=== PATIENT | female | born 1930 | race Caucasian/White ===

== ENCOUNTER 2016-08-26 11:17 | Observation (INO) | payer MEDICARE, OTHER ==
[2016-08-26] MEDS ORDERED: ASPIRIN 81 MG TABLET, CHEWABLE PO ONE (11:20)
--- NOTE | 2016-08-26 11:50 | ER Document Report ---
ED Cardiac - General Chief Complaint: Chest Pain > 30 Stated Complaint: CHEST PAIN Information source: Patient Notes: The patient is an 86-year-old female, past medical history chronic A. fib, hypothyroidism, diabetes type II, hyperlipidemia, COPD, GERD, presents with 2 hours of left-sided chest pressure that is radiating into her left shoulder and upper arm. She was at rest when this all started. She denies ever having this pain before. She denies shortness of breath, cough, fevers, leg swelling, headache, numbness, tingling, nausea, vomiting or abdominal pain. TRAVEL OUTSIDE OF THE [place] IN LAST 30 DAYS: No - Related Data Allergies/Adverse Reactions: lidocaine [Lidocaine] Allergy (Severe, Verified 12/15/14 14:28) heart problems clonidine [Clonidine] Allergy (Verified 12/15/14 14:28) nifedipine [From Procardia] Allergy (Verified 12/15/14 14:28) Sulfa (Sulfonamide Antibiotics) Allergy (Verified 12/15/14 14:28) Shellfish * [Shellfish] Adverse Reaction (Verified 12/15/14 14:28) cat dander Allergy (Uncoded 12/15/14 14:28) dog dander Allergy (Uncoded 12/15/14 14:28) Past Medical History - General Information source: Patient - Social History Smoking Status: Never Smoker Family History: DM, Other - [place]-brother, sister, mother Stroke- brother, mother - Past Medical History Cardiac Medical History: Reports: Hx Atrial Fibrillation, Hx Coronary Artery Disease, Hx Heart Attack, Hx Hypercholesterolemia, Hx Hypertension Pulmonary Medical History: Reports: Hx COPD Denies: Hx Tuberculosis Endocrine Medical History: Reports: Hx Diabetes Mellitus Type 1, Hx Diabetes Mellitus Type 2, Hx Hypothyroidism GI Medical History: Reports: Hx Gastroesophageal Reflux Disease Musculoskeltal Medical History: Reports Hx Arthritis, Reports Hx Fibromyalgia Psychiatric Medical History: Reports: Hx Anxiety, Hx Dementia, Hx Depression Past Surgical History: Reports: Hx Orthopedic Surgery - cervical fusion, Hx Thyroid Surgery - partial thyroidectomy - Immunizations Hx Diphtheria, Pertussis, Tetanus Vaccination: No Hx Pneumococcal Vaccination: 08/17/10 Review of Systems - Review of Systems Notes: REVIEW OF SYSTEMS: CONSTITUTIONAL: -fevers, -chills EENT: -eye pain, -difficulty swallowing, -nasal congestion CARDIOVASCULAR: +chest pain, -syncope. RESPIRATORY: -cough, -SOB GASTROINTESTINAL: -abdominal pain, - nausea, -vomiting, -diarrhea GENITOURINARY: -dysuria, -hematuria MUSCULOSKELETAL: -back pain, -neck pain SKIN: -rash or skin lesions. HEMATOLOGIC: -easy bruising or bleeding. LYMPHATIC: -swollen, enlarged glands. NEUROLOGICAL: -altered mental status or loss of consciousness, -headache, - neurologic symptoms PSYCHIATRIC: -anxiety, -depression. ALL OTHER SYSTEMS REVIEWED AND NEGATIVE. Physical Exam - Vital signs Vitals: Pulse Ox 95 08/26/16 11:20 BP 140/100, HR 84, 98% on RA, RR 22 - Notes Notes: PHYSICAL EXAMINATION: GENERAL: Well-appearing, well-nourished and in no acute distress. HEAD: Atraumatic, normocephalic. EYES: Pupils equal round and reactive to light, extraocular movements intact, sclera anicteric, conjunctiva are normal. ENT: nares patent, oropharynx clear without exudates. Moist mucous membranes. NECK: Normal range of motion, supple without lymphadenopathy LUNGS: Breath sounds clear to auscultation bilaterally and equal. No wheezes rales or rhonchi. HEART: Regular rate and rhythm. Tenderness over left upper chest wall. ABDOMEN: Soft, nontender, normoactive bowel sounds. No guarding, no rebound. No masses appreciated. EXTREMITIES: Normal range of motion, no pitting or edema. No cyanosis. NEUROLOGICAL: Cranial nerves grossly intact. Normal speech, normal gait. Normal sensory, motor, and reflex exams. PSYCH: Normal mood, normal affect. SKIN: Warm, Dry, normal turgor, no rashes or lesions noted. Course - Re-evaluation Re-evalutation: Patient chest pain-free. HEART score 7. Symptoms atypical for PE or aortic dissection at this time. Will bring patient in for Obs for further evaluation and treatment of her chest pain. 08/26/16 13:29 Spoke to Reg Camara and she has accepted patient as telemetry observation. - Vital Signs Vital signs: Temp Pulse Resp BP Pulse Ox 98.6 F 83 25 H 162/100 H 99 08/26/16 12:13 08/26/16 12:13 08/26/16 13:01 08/26/16 13:01 08/26/16 13:01 - Laboratory Result Diagrams: 08/26/16 11:55 08/26/16 11:55 Laboratory results interpreted by me: 08/26/16 11:55 Hct 34.8 L RDW 14.5 H - Diagnostic Test Radiology reviewed: Image reviewed, Reports reviewed Radiology results interpreted by me: CXR: NAD - EKG Interpretation by Me EKG shows normal: Sinus rhythm Rhythm: NSR, Other - frequent PVCs [place]/QRS: RBBB, LAHB/LAFB Discharge - Discharge Clinical Impression: Chest pain Qualifiers: Chest pain type: unspecified Qualified Code(s): R07.9 - Chest pain, unspecified Condition: Good Disposition: ADMITTED OBSERVATION Admitting Provider: Hospitalist Arina Camara
[2016-08-26 12:29] LABS: ABSOLUTE LYMPHOCYTES (AUTO) 1.2 10^3/uL (0.5-4.7); ABSOLUTE MONOCYTES (AUTO) 0.6 10^3/uL (0.1-1.4); ABSOLUTE NEUT (AUTO) 3.2 10^3/uL (1.7-8.2); BASOPHILS % (AUTO) 0.8 % (0-2); EOSINOPHILS % (AUTO) 0.8 % (0-6); HEMATOCRIT 34.8 % (36.0-47.0); HGB HCT DIFFERENCE 1.2; MEAN CORPUSCULAR HEMOGLOBIN 31.5 pg (27.0-33.4); MEAN CORPUSCULAR HGB CONC 34.5 g/dL (32.0-36.0); MEAN CORPUSCULAR VOLUME 91 fl (80-97); MONOCYTES % (AUTO) 12.3 % (3-13); RED BLOOD COUNT 3.81 10^6/uL (3.72-5.28); RED CELL DISTRIBUTION WIDTH 14.5 % (11.5-14.0); SEGMENTED NEUTROPHILS % (AUTO) 63.1 % (42-78); WHITE BLOOD COUNT 5.1 10^3/uL (4.0-10.5)
[2016-08-26 12:50] LABS: ALANINE AMINOTRANSFERASE 28 U/L (9-52); ALBUMIN 3.7 g/dL (3.5-5.0); ALKALINE PHOSPHATASE 38 U/L (38-126); ANION GAP 10 (5-19); ASPARTATE AMINO TRANSFERASE 27 U/L (14-36); BILIRUBIN,TOTAL 0.3 mg/dL (0.2-1.3); BLOOD UREA NITROGEN 15 mg/dL (7-20); CALCIUM 8.8 mg/dL (8.4-10.2); CARBON DIOXIDE 29 mmol/L (22-30); CHLORIDE 102 mmol/L (98-107); CREATINE KINASE 32 U/L (30-135); CREATININE RESULT 0.53 mg/dL (0.52-1.25); GLUCOSE 90 mg/dL (75-110); POTASSIUM 4.4 mmol/L (3.6-5.0); SODIUM 140.9 mmol/L (137-145)
[2016-08-26 13:00] LABS: CREATINE KINASE MB 0.95 ng/mL (<4.55)
[2016-08-26 13:01] LABS: TROPONIN I < 0.012 ng/mL
[2016-08-26] MEDS ORDERED: HEPARIN SOD (PORCINE) 5,000 UNIT/ML 1 ML SYRINGE SUBCUT SCH (14:00)
[2016-08-26] MEDS ORDERED: INFLUENZA ADLT QUAD (36MOS+) 2016-17 VAC 0.5 ML SYR IM PRN (16:32)
--- NOTE | 2016-08-26 16:59 | EKG REPORT ---
SEVERITY:- ABNORMAL ECG - SINUS RHYTHM MULTIPLE VENTRICULAR PREMATURE COMPLEXES RBBB AND LAFB : Confirmed by: Racheal Vail MD 26-Aug-2016 16:58:11
[2016-08-26] MEDS ORDERED: (PENDING PHARMACY ID) (Acetaminophen [Acetaminophen Extra Strength] 1,000 MG) PO PRN (17:50)
[2016-08-26] MEDS ORDERED: ALPRAZOLAM 0.25 MG TABLET PO PRN (17:50)
[2016-08-26] MEDS ORDERED: ACETAMINOPHEN 325 MG TABLET PO PRN (18:24)
--- NOTE | 2016-08-26 18:28 | PDOC H&P ---
History of Present Illness Admission Date/PCP: 08/26/16 13:43 Patient complains of: Left sided Chest pain History of Present Illness: RADHA RIVAS is a 86 year old female resident at [facility] who was brought to the emergency department due to complain of left sided pressure like chest pain. Symptom started at rest about 2-3 hours before presentation to the ED. She denied any associated SOB, palpitation, nausea, vomiting or diaphoresis. She reported radiation of pain to left shoulder joint and upper left arm. Discomfort was reported as intermittent. She was managed with Aspirin 325 mg po x 1 dose and supplemental oxygen. Her initial evaluation in the ED was remarkable for elevated blood pressure with non specific EKG changes and normal cardiac enzymes. Due to her high HEART score at 7, she was advised admission to observation bed for further evaluation of probable ACS. At the time of my assessment patient remain pain free. Past Medical History Cardiac Medical History: Reports: Atrial Fibrillation, Coronary Artery Disease, Hyperlipidema, Hypertension Denies: Congestive Heart Failure, Myocardial Infarction Pulmonary Medical History: Denies: Asthma, Bronchitis, Chronic Obstructive Pulmonary Disease (COPD), Pneumonia, Tuberculosis Neurological Medical History: Denies: Seizures Endocrine Medical History: Reports: Diabetes Mellitus Type 2 - diet controlled, Hypothyroidism Renal/ Medical History: Denies: End Stage Renal Disease GI Medical History: Reports: Gastroesophageal Reflux Disease Denies: Cirrhosis Musculoskeltal Medical History: Reports: Arthritis, Fibromyalgia Psychiatric Medical History: Reports: Dementia, Depression Denies: Bipolar Disorder Hematology: Denies: Anemia, Bleeding Tendencies Past Surgical History Past Surgical History: Reports: Orthopedic Surgery - cervical fusion Social History Smoking Status: Never Smoker Frequency of Alcohol Use: None Hx Recreational Drug Use: No Drugs: None Hx Prescription Drug Abuse: No - Advance Directive Resuscitation Status: Full Code Family History Family History: DM, Other - [place]-brother, sister, mother Stroke- brother, mother Parental Family History Reviewed: Yes Children Family History Reviewed: Yes Sibling(s) Family History Reviewed.: Yes Medication/Allergy Home Medications: Acetaminophen [Acetaminophen Extra Strength] 1,000 mg PO Q8HP PRN 08/26/16 Alprazolam [Xanax 0.25 mg Tablet] 0.25 mg PO Q12HP PRN 08/26/16 Ascorbic Acid [Vitamin C 500 mg Tablet] 500 mg PO DAILY 08/26/16 Aspirin [Aspirin 81 mg Chewable Tablet] 81 mg PO DAILY 08/26/16 Calcium Carbonate [[place] 500 mg Tablet (Oyster-Shell)] 500 mg PO DAILY Cetirizine HCl [Zyrtec 10 mg Tablet] 1 tab PO DAILY 08/26/16 Esomeprazole Magnesium [Nexium] 40 mg PO DAILY 08/26/16 Levothyroxine Sodium [Synthroid 0.075 mg Tablet] 0.075 mg PO Q6AM 08/26/16 Lisinopril [Prinivil 5 mg Tablet] 5 mg PO DAILY 08/26/16 Magnesium Oxide [Mag-Ox 400 mg Tablet] 400 mg PO DAILY 08/26/16 Vit No.73/Iron/FA [Trinate Tablet] 1 each PO DAILY 08/26/16 Raloxifene HCl [Evista 60 mg Tablet] 60 mg PO DAILY 08/26/16 Sennosides/Docusate 8.6-50 mg [Senna Plus Tablet] 1 tab PO DAILY 08/26/16 Sertraline HCl [Zoloft] 100 mg PO QHS 08/26/16 Trazodone HCl [Desyrel 50 mg Tablet] 50 mg PO QHS 08/26/16 Zolpidem Tartrate [Ambien 5 mg Tablet] 5 mg PO QHS 08/26/16 Allergies/Adverse Reactions: lidocaine [Lidocaine] Allergy (Severe, Verified 12/15/14 14:28) heart problems clonidine [Clonidine] Allergy (Verified 12/15/14 14:28) nifedipine [From Procardia] Allergy (Verified 12/15/14 14:28) Sulfa (Sulfonamide Antibiotics) Allergy (Verified 12/15/14 14:28) Shellfish * [Shellfish] Adverse Reaction (Verified 12/15/14 14:28) cat dander Allergy (Uncoded 12/15/14 14:28) dog dander Allergy (Uncoded 12/15/14 14:28) Physical Exam Vital Signs: Temp Pulse Resp BP Pulse Ox 98.4 F 78 22 H 151/63 H 96 08/26/16 16:22 08/26/16 16:40 08/26/16 16:22 08/26/16 16:22 08/26/16 16:22 Intake & Output 08/25/16 08/26/16 08/27/16 06:59 06:59 06:59 Intake Total 240 Balance 240 Weight 59.12 kg General appearance: PRESENT: no acute distress, cooperative, well-developed, well-nourished Head exam: PRESENT: atraumatic, normocephalic Eye exam: PRESENT: conjunctiva pink, EOMI, PERRLA. ABSENT: scleral icterus Ear exam: PRESENT: normal external ear exam Mouth exam: PRESENT: moist, tongue midline Throat exam: ABSENT: post pharyngeal erythema, tonsillar erythema, tonsillar exudate, tonsillogmegaly, other Neck exam: ABSENT: carotid bruit, full ROM, JVD, lymphadenopathy, meningismus, tenderness, thyromegaly, tracheal deviation, tracheostomy, other Respiratory exam: ABSENT: accessory muscle use, chest wall tenderness, clear to auscultation [place], crackles, decreased breath sounds, prolonged expiratory phas, rales, retraction, rhonchi, stridor, symmetrical, tachypnea, unlabored, wheezes , other Cardiovascular exam: PRESENT: RRR. ABSENT: diastolic murmur, rubs, systolic murmur Pulses: PRESENT: normal dorsalis pedis pul, +2 pedal pulses bilateral Vascular exam: PRESENT: normal capillary refill GI/Abdominal exam: PRESENT: normal bowel sounds, soft. ABSENT: distended, guarding, mass, organolmegaly, rebound, tenderness Rectal exam: PRESENT: deferred Extremities exam: PRESENT: full ROM Musculoskeletal exam: PRESENT: ambulatory, deformity - from joint arthritis, full ROM, normal inspection Neurological exam: PRESENT: alert, awake, oriented to person, oriented to place , oriented to time, oriented to situation, CN II-XII grossly intact. ABSENT: motor sensory deficit Psychiatric exam: PRESENT: appropriate affect, normal mood. ABSENT: homicidal ideation, suicidal ideation Skin exam: PRESENT: dry, intact, warm. ABSENT: cyanosis, rash Results Impressions: Chest X-Ray 08/26/16 11:20 IMPRESSION: 1. No evidence of acute cardiopulmonary disease. 2. 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 Assessment & Plan - Diagnosis (2) Chest pain Qualifiers: Chest pain type: unspecified Qualified Code(s): R07.9 - Chest pain, unspecified Is this a current diagnosis for this admission?: Yes (3) GERD (gastroesophageal reflux disease) Qualifiers: Esophagitis presence: without esophagitis Qualified Code(s): K21.9 - Gastro-esophageal reflux disease without esophagitis Is this a current diagnosis for this admission?: Yes (4) HTN (hypertension) Qualifiers: Hypertension type: essential hypertension Qualified Code(s): I10 - Essential (primary) hypertension Is this a current diagnosis for this admission?: Yes (5) Hypothyroidism Qualifiers: Hypothyroidism type: acquired Qualified Code(s): E03.9 - Hypothyroidism, unspecified Is this a current diagnosis for this admission?: Yes (6) Osteoarthritis Qualifiers: Osteoarthritis location: multiple joints Osteoarthritis type: primary Qualified Code(s): M15.0 - Primary generalized (osteo)arthritis Is this a current diagnosis for this admission?: Yes (7) Hyperlipidemia Qualifiers: Hyperlipidemia type: pure hypercholesterolemia Qualified Code(s): E78.00 - Pure hypercholesterolemia, unspecified; E78.0 - Pure hypercholesterolemia (8) Diabetes mellitus type 2, diet-controlled Is this a current diagnosis for this admission?: Yes (9) CAD (coronary artery disease), [place] coronary artery Qualifiers: [place] vs. transplanted heart: [place] heart Associated angina: with unspecified angina Qualified Code(s): I25.119 - Atherosclerotic heart disease of [place] coronary artery with unspecified angina pectoris Is this a current diagnosis for this admission?: Yes - Time Time Spent: 50 to 70 Minutes Medications reviewed and adjusted accordingly: Yes Anticipated discharge: Other - Assisted Living Facility - Inpatient Certification Based on my medical assessment, after consideration of the patient's comorbidities, presenting symptoms, or acuity I expect that the services needed warrant INPATIENT care.: No I certify that my determination is in accordance with my understanding of Medicare's requirements for reasonable and necessary INPATIENT services [42 CFR 412.3e].: No Post Hospital Care: D/C Director Of Quality Documentation - Plan Summary Plan Summary: See admitting physician orders for details. It is my hope that she will improve and evaluation will be negative to allow discharge back to assisted living facility within the next 24 hours.
[2016-08-26 18:40] LABS: PARTIAL THROMBOPLASTIN TIME 31.1 SEC (23.5-35.8); PROTHROMBIN TIME 13.4 SEC (11.4-15.4)
[2016-08-26] MEDS ORDERED: DEXTROSE 50%-WATER 25 GM/50 ML DISP.SYRIN IV PRN ×2 (18:49)
[2016-08-26] MEDS ORDERED: INSULIN LISPRO 100 UNIT/ML 3 ML VIAL SUBCUT PRN (18:49)
[2016-08-26] MEDS ORDERED: DEXTROSE 40% GEL 15 GM TUBE PO PRN ×2 (18:49)
[2016-08-26] MEDS ORDERED: GLUCAGON,HUMAN RECOMB 1 MG INJ IM PRN (18:49)
[2016-08-26] MEDS ORDERED: ENOXAPARIN SODIUM INJ 40 MG/0.4 ML DISP.SYRIN SUBCUT ONE (19:00)
[2016-08-26 19:31] LABS: CREATINE KINASE MB 1.04 ng/mL (<4.55); TROPONIN I 0.014 ng/mL
[2016-08-26] MEDS ORDERED: TRAZODONE HCL 50 MG TABLET PO SCH (22:00)
[2016-08-26] MEDS ORDERED: ZOLPIDEM TARTRATE 5 MG TABLET PO SCH (22:00)
[2016-08-26] MEDS ORDERED: SERTRALINE HCL 50 MG TABLET PO SCH (22:00)
[2016-08-27 01:59] LABS: CREATINE KINASE MB 0.81 ng/mL (<4.55); TROPONIN I 0.014 ng/mL
[2016-08-27] MEDS ORDERED: LANSOPRAZOLE 30 MG TAB.RAP.DR PO SCH (06:00)
[2016-08-27] MEDS ORDERED: LEVOTHYROXINE SODIUM 0.075 MG TABLET PO SCH (06:00)
[2016-08-27 07:48] LABS: CREATINE KINASE MB 0.77 ng/mL (<4.55)
[2016-08-27] MEDS ORDERED: ENOXAPARIN SODIUM INJ 40 MG/0.4 ML DISP.SYRIN SUBCUT SCH (08:00)
[2016-08-27 08:04] LABS: TROPONIN I < 0.012 ng/mL
[2016-08-27] MEDS ORDERED: ASCORBIC ACID 500 MG TABLET PO SCH (10:00)
[2016-08-27] MEDS ORDERED: LISINOPRIL 5 MG TABLET PO SCH (10:00)
[2016-08-27] MEDS ORDERED: RALOXIFENE HCL 60 MG TABLET PO SCH (10:00)
[2016-08-27] MEDS ORDERED: MAGNESIUM OXIDE 400 MG TABLET PO SCH (10:00)
[2016-08-27] MEDS ORDERED: PRENATAL VITAMIN W-O CA NO5/FE FUMARATE/FA CAPSULE PO SCH (10:00)
[2016-08-27] MEDS ORDERED: CETIRIZINE 10 MG TABLET PO SCH (10:00)
[2016-08-27] MEDS ORDERED: ASPIRIN 81 MG TABLET, CHEWABLE PO SCH (10:00)
[2016-08-27] MEDS ORDERED: CALCIUM CARBONATE 500 MG TABLET PO SCH (10:00)
[2016-08-27] MEDS ORDERED: SENNOSIDES/DOCUSATE 8.6-50 MG 1 EACH TABLET PO SCH (10:00)
[2016-08-27] MEDS ORDERED: [UNRECOGNIZED DRUG - REMARK] PO SCH (10:00)
--- NOTE | 2016-08-27 13:40 | EKG REPORT ---
SEVERITY:- ABNORMAL ECG - SINUS RHYTHM MULTIPLE VENTRICULAR PREMATURE COMPLEXES PROBABLE LEFT ATRIAL ABNORMALITY RBBB AND LAFB : Confirmed by: Racheal Vail MD 27-Aug-2016 13:39:06
--- NOTE | 2016-08-27 15:17 | Physician Advisory Note ---
Physician Advisor ProgressNote .: [facility] I have reviewed the medical record for this patient. Physician Advisor Statement: Possible documentation opportunities if attending agrees: 1. "CP, likely due to " - need to spell out exactly what dx is likely the cause: the GERD? OA? CAD? ... Thanks for your help with documentation accuracy/specificity improvement! Marily Morillo MD [facility], LAT[facility] Physician Advisor, Fellow of [facility]
--- NOTE | 2016-08-27 15:30 | PDOC DISCHARGE SUMMARY ---
General - Admit/Disc Date/PCP Admission Date/Primary Care Provider: 08/26/16 17:49 Discharge Date: 08/27/16 - Discharge Diagnosis (2) Chest pain Is this a current diagnosis for this admission?: YesSummary: Most likely due to GERD. (3) GERD (gastroesophageal reflux disease) Is this a current diagnosis for this admission?: Yes (4) HTN (hypertension) Is this a current diagnosis for this admission?: Yes (5) Hypothyroidism Is this a current diagnosis for this admission?: Yes (6) Osteoarthritis Is this a current diagnosis for this admission?: Yes (8) Diabetes mellitus type 2, diet-controlled Is this a current diagnosis for this admission?: Yes (9) CAD (coronary artery disease), [place] coronary artery Is this a current diagnosis for this admission?: Yes - Additional Information Resuscitation Status: Full Code Discharge Diet: Cardiac Discharge Activity: Activity As Tolerated Home Medications: Acetaminophen [Acetaminophen Extra Strength] 1,000 mg PO Q8HP PRN 08/26/16 Alprazolam [Xanax 0.25 mg Tablet] 0.25 mg PO Q12HP PRN 08/26/16 Ascorbic Acid [Vitamin C 500 mg Tablet] 500 mg PO DAILY 08/26/16 Aspirin [Aspirin 81 mg Chewable Tablet] 81 mg PO DAILY 08/26/16 Calcium Carbonate [[place] 500 mg Tablet (Oyster-Shell)] 500 mg PO DAILY Cetirizine HCl [Zyrtec 10 mg Tablet] 1 tab PO DAILY 08/26/16 Esomeprazole Magnesium [Nexium] 40 mg PO DAILY 08/26/16 Levothyroxine Sodium [Synthroid 0.075 mg Tablet] 0.075 mg PO Q6AM 08/26/16 Lisinopril [Prinivil 5 mg Tablet] 5 mg PO DAILY 08/26/16 Magnesium Oxide [Mag-Ox 400 mg Tablet] 400 mg PO DAILY 08/26/16 Vit No.73/Iron/FA [Trinate Tablet] 1 each PO DAILY 08/26/16 Raloxifene HCl [Evista 60 mg Tablet] 60 mg PO DAILY 08/26/16 Sennosides/Docusate 8.6-50 mg [Senna Plus Tablet] 1 tab PO DAILY 08/26/16 Sertraline HCl [Zoloft] 100 mg PO QHS 08/26/16 Trazodone HCl [Desyrel 50 mg Tablet] 50 mg PO QHS 08/26/16 Zolpidem Tartrate [Ambien 5 mg Tablet] 5 mg PO QHS 08/26/16 History of Present Illness History of Present Illness: RADHA RIVAS is a 86 year old female resident at [facility] who was brought to the emergency department due to complain of left sided pressure like chest pain. Symptom started at rest about 2-3 hours before presentation to the ED. She denied any associated SOB, palpitation, nausea, vomiting or diaphoresis. She reported radiation of pain to left shoulder joint and upper left arm. Discomfort was reported as intermittent. She was managed with Aspirin 325 mg po x 1 dose and supplemental oxygen. Her initial evaluation in the ED was remarkable for elevated blood pressure with non specific EKG changes and normal cardiac enzymes. Due to her high HEART score at 7, she was advised admission to observation bed for further evaluation of probable ACS. At the time of my assessment patient remain pain free. Hospital Course Hospital Course: Her symptoms resolved with any recurrence since my last clinical evaluation. Her cardiac enzymes were within acceptable range without suggestion of chest pain as cardiac in origin. Patient is agreeable to discharge to [facility] today. She denied any nausea, vomiting or abdominal pain. She has been tolerating oral feeding. Physical Exam Vital Signs: Temp Pulse Resp BP Pulse Ox 98.3 F 77 16 147/57 H 100 08/27/16 11:29 08/27/16 14:00 08/27/16 11:29 08/27/16 11:29 08/27/16 11:29 Intake & Output 08/26/16 08/27/16 08/28/16 06:59 06:59 06:59 Intake Total 420 Balance 420 General appearance: PRESENT: no acute distress, well-developed, well-nourished Head exam: PRESENT: atraumatic, normocephalic Eye exam: PRESENT: conjunctiva pink, EOMI, PERRLA. ABSENT: scleral icterus Mouth exam: PRESENT: moist, tongue midline Neck exam: PRESENT: full ROM. ABSENT: carotid bruit, JVD, lymphadenopathy, thyromegaly Respiratory exam: ABSENT: accessory muscle use, chest wall tenderness, clear to auscultation [place], crackles, decreased breath sounds, prolonged expiratory phas, rales, retraction, rhonchi, stridor, symmetrical, tachypnea, unlabored, wheezes , other Extremities exam: PRESENT: full ROM Musculoskeletal exam: PRESENT: ambulatory, deformity - due to multiple joints arthritis changes, full ROM, normal inspection. ABSENT: dislocation, tenderness , other Neurological exam: PRESENT: alert, awake, oriented to person, oriented to place , oriented to time, oriented to situation, CN II-XII grossly intact. ABSENT: motor sensory deficit Psychiatric exam: PRESENT: appropriate affect, normal mood. ABSENT: homicidal ideation, suicidal ideation Skin exam: PRESENT: dry, intact, warm. ABSENT: cyanosis, rash Results Laboratory Results: 08/26/16 08/26/16 08/27/16 18:19 18:19 00:20 Creatine Kinase 22 L 23 L CK-MB (CK-2) 1.04 Troponin I 0.014 08/27/16 08/27/16 08/27/16 00:20 05:25 05:25 Creatine Kinase 24 L CK-MB (CK-2) 0.81 0.77 Troponin I 0.014 < 0.012 Impressions: Chest X-Ray 08/26/16 11:20 IMPRESSION: 1. No evidence of acute cardiopulmonary disease. 2. 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 Qualifiers [place] BEING DISCHARGED WITH ANY OF THE FOLLOWING DIAGNOSIS?: No Plan Discharge Plan: Discharged to [facility] today. Follow up in office as instructed. Time Spent: Less than 30 Minutes
[2016-08-27 16:09] VITALS: BP 188/80
== END 2016-08-27 18:38 | disposition home health service (06) ==
LOC: ER 11:17 → EH 13:41 → UNDOADMOB 13:41 → EH 13:43 → 5 16:21
PROVIDERS: ADMIT Internal Medicine Geriatric Medicine; ATTEND Internal Medicine Geriatric Medicine
DX: R07.9 Chest pain, unspecified (principal); I25.119 Atherosclerotic heart disease of native coronary artery with unspecified angina pectoris; K21.9 Gastro-esophageal reflux disease without esophagitis; I10 Essential (primary) hypertension; E03.9 Hypothyroidism, unspecified; M19.90 Unspecified osteoarthritis, unspecified site; E11.9 Type 2 diabetes mellitus without complications; I48.91 Unspecified atrial fibrillation; E78.5 Hyperlipidemia, unspecified; M79.7 Fibromyalgia; F03.90 Unspecified dementia, unspecified severity, without behavioral disturbance, psychotic disturbance, mood disturbance, and anxiety; Z82.49 Family history of ischemic heart disease and other diseases of the circulatory system; Z82.3 Family history of stroke; Z83.3 Family history of diabetes mellitus
CPT/HCPCS: 93005 ×2; 99285; 96372; 36415 ×2; 82553 ×2; 82962 ×2; 82550 ×2; 84443; 85025; 85610; 85730; 80053; 84484 ×2; 83036; 71010; 93010 ×2; G0378 ×2; A9270 ×14; J1644; J1650 ×2; J3490

== ENCOUNTER 2016-09-11 08:23 | Emergency (ER) | payer MEDICARE, OTHER ==
[2016-09-11] MEDS ORDERED: NORMAL SALINE 1000 ML 1,000 ML IV ONE (08:31)
[2016-09-11] MEDS ORDERED: ONDANSETRON HCL INJ/PF 4 MG/2 ML SDV IV ONE (08:31)
--- NOTE | 2016-09-11 08:54 | ER Document Report ---
[id number] Mode of Arrival: Medic Information source: Patient Notes: 86-year-old female presents with complaints of nausea vomiting diarrhea over the past 12 hours. Patient denies any abdominal pain denies any other concerns. Patient notes the multiple of her friends at [facility] have similar complaints. Patient notes her symptoms have resolved since receiving Zofran by EMS TRAVEL OUTSIDE OF THE [place] IN LAST 30 DAYS: No - HPI Onset: Yesterday Onset/Duration: Intermittent Quality of pain: No pain Severity: Mild Pain Level: Denies Associated symptoms: Diarrhea, Nausea, Vomiting Exacerbated by: Denies Relieved by: Denies Similar symptoms previously: No Recently seen / treated by doctor: No - Related Data Allergies/Adverse Reactions: lidocaine [Lidocaine] Allergy (Severe, Verified 12/15/14 14:28) heart problems clonidine [Clonidine] Allergy (Verified 12/15/14 14:28) nifedipine [From Procardia] Allergy (Verified 12/15/14 14:28) Sulfa (Sulfonamide Antibiotics) Allergy (Verified 12/15/14 14:28) Shellfish * [Shellfish] Adverse Reaction (Verified 12/15/14 14:28) cat dander Allergy (Uncoded 12/15/14 14:28) dog dander Allergy (Uncoded 12/15/14 14:28) Past Medical History - Social History Smoking Status: Never Smoker Cigarette use (# per day): No Chew tobacco use (# tins/day): No Smoking Education Provided: No Family History: DM, Other - [place]-brother, sister, mother Stroke- brother, mother - Past Medical History Cardiac Medical History: Reports: Hx Atrial Fibrillation, Hx Coronary Artery Disease, Hx Hypercholesterolemia, Hx Hypertension Denies: Hx Congestive Heart Failure, Hx Heart Attack Pulmonary Medical History: Denies: Hx Asthma, Hx Bronchitis, Hx COPD, Hx Pneumonia, Hx Tuberculosis Neurological Medical History: Denies: Hx Seizures Endocrine Medical History: Reports: Hx Diabetes Mellitus Type 1, Hx Diabetes Mellitus Type 2 - diet controlled, Hx Hypothyroidism Renal/ Medical History: Denies: Hx End Stage Renal Disease, Hx Kidney Stones GI Medical History: Reports: Hx Gastroesophageal Reflux Disease, Hx Ulcer. Denies: Hx Cirrhosis Musculoskeltal Medical History: Reports Hx Arthritis, Reports Hx Fibromyalgia, Denies Hx Multiple Sclerosis Psychiatric Medical History: Reports: Hx Anxiety, Hx Dementia, Hx Depression Denies: Hx Bipolar Disorder, Hx Schizophrenia Past Surgical History: Reports: Hx Orthopedic Surgery - cervical fusion, Hx Thyroid Surgery - partial thyroidectomy - Immunizations Hx Diphtheria, Pertussis, Tetanus Vaccination: No Hx Pneumococcal Vaccination: 08/17/10 Review of Systems - Review of Systems Notes: REVIEW OF SYSTEMS: CONSTITUTIONAL : Denies fever, chills, or sweats. Denies recent illness. EENT: Denies eye, ear, throat, or mouth pain or symptoms. Denies nasal or sinus congestion or discharge. Denies throat, tongue, or mouth swelling or difficulty swallowing. CARDIOVASCULAR: Denies chest pain. Denies palpitations or racing or irregular heart beat. Denies ankle edema. RESPIRATORY: Denies cough, cold, or chest congestion. Denies shortness of breath, difficulty breathing, or wheezing. GASTROINTESTINAL: Admits to nausea vomiting diarrhea GENITOURINARY: Denies difficulty urinating, painful urination, burning, frequency, blood in urine, or discharge. FEMALE GENITOURINARY: Denies vaginal bleeding, heavy or abnormal periods, irregular periods. Denies vaginal discharge or odor. MUSCULOSKELETAL: Denies back or neck pain or stiffness. Denies joint pain or swelling. SKIN: Denies rash, lesions or sores. HEMATOLOGIC : Denies easy bruising or bleeding. LYMPHATIC: Denies swollen, enlarged glands. NEUROLOGICAL: Denies confusion or altered mental status. Denies passing out or loss of consciousness. Denies dizziness or lightheadedness. Denies headache. Denies weakness or paralysis or loss of use of either side. Denies problems with gait or speech. Denies sensory loss, numbness, or tingling. Denies seizures. PSYCHIATRIC: Denies anxiety or stress. Denies depression, suicidal ideation, or homicidal ideation. ALL OTHER SYSTEMS REVIEWED AND NEGATIVE. Dictation was performed using [employer] recognition software PHYSICAL EXAMINATION: GENERAL: Well-appearing, well-nourished and in no acute distress. HEAD: Atraumatic, normocephalic. EYES: Pupils equal round and reactive to light, extraocular movements intact, conjunctiva are normal. ENT: Nares patent, oropharynx clear without exudates. Moist mucous membranes. NECK: Normal range of motion, supple without lymphadenopathy LUNGS: Breath sounds clear to auscultation bilaterally and equal. No wheezes rales or rhonchi. HEART: Regular rate and rhythm without murmurs ABDOMEN: Soft, nontender, nondistended abdomen. No guarding, no rebound. No masses appreciated. Female : deferred Musculoskeletal: Normal range of motion, no pitting or edema. No cyanosis. NEUROLOGICAL: Cranial nerves grossly intact. Normal speech, normal gait. Normal sensory, motor exams PSYCH: Normal mood, normal affect. SKIN: Warm, Dry, normal turgor, no rashes or lesions noted. Physical Exam - Vital signs Vitals: Resp Pulse Ox 19 99 09/11/16 08:51 09/11/16 08:51 Course - Re-evaluation Re-evalutation: 09/11/16 08:54 Patient extremely pleasant oriented very happy denies any other concerns, she' ll be given fluids and Zofran lab work imaging are pending at this time 09/11/16 15:17 Patient otherwise looks well fluids were given and she wishes to go home I will discharge her at this time After performing a Medical Screening Examination, I estimate there is LOW risk for ACUTE APPENDICITIS, BOWEL OBSTRUCTION, ACUTE CHOLECYSTITIS, PERFORATED DIVERTICULITIS, INCARCERATED HERNIA, PANCREATITIS, PELVIC INFLAMMATORY DISEASE, PERFORATED ULCER, ECTOPIC , or TUBO-OVARIAN ABSCESS, thus I consider the discharge disposition reasonable. Also, there is no evidence or peritonitis , sepsis, or toxicity. The patient and I have discussed the diagnosis and risks , and we agree with discharging home with close follow-up with the understanding that symptoms and presentations can change. We also discussed returning to the Emergency Department immediately if new or worsening symptoms occur. We have discussed the symptoms which are most concerning (e.g., bloody stool, fever, changing or worsening pain, vomiting) that necessitate immediate return. - Vital Signs Vital signs: Temp Pulse Resp BP Pulse Ox 98 F 99 16 147/73 H 95 09/11/16 13:54 09/11/16 13:54 09/11/16 13:54 09/11/16 13:54 09/11/16 13:54 - Laboratory Result Diagrams: 09/11/16 09:07 09/11/16 09:07 Laboratory results interpreted by me: 09/11/16 09/11/16 09/11/16 09:07 09:07 09:15 WBC 12.6 H Seg Neuts % (Manual) 94 H Lymphocytes % (Manual) 3 L Abs Neuts (Manual) 11.8 H Abs Lymphs (Manual) 0.4 L Glucose 143 H Urine Protein 100 H Urine Ketones TRACE H Ur Leukocyte Esterase TRACE H Urine Ascorbic Acid 40 H - Diagnostic Test Radiology reviewed: Image reviewed, Reports reviewed Discharge - Discharge Clinical Impression: Nausea & vomiting Qualifiers: Vomiting type: unspecified Vomiting Intractability: intractable Qualified Code( s): R11.2 - Nausea with vomiting, unspecified Diarrhea Qualifiers: Diarrhea type: unspecified type Qualified Code(s): R19.7 - Diarrhea, unspecified Condition: Stable Disposition: HOME, SELF-CARE Instructions: Vomiting ([facility]), Diarrhea, Nonspecific ([facility]) Prescriptions: Ondansetron [Zofran Odt 4 mg Tablet] 1 - 2 tab PO Q4H PRN #15 tab.rapdis PRN Reason: For Nausea/Vomiting Referrals: GERARD GARCES MD [Primary Care Provider] - Follow up tomorrow
[2016-09-11 09:26] LABS: MEAN CORPUSCULAR HEMOGLOBIN 30.8 pg (27.0-33.4); MEAN CORPUSCULAR HGB CONC 33.3 g/dL (32.0-36.0); MEAN CORPUSCULAR VOLUME 92 fl (80-97); RED BLOOD COUNT 4.22 10^6/uL (3.72-5.28); WHITE BLOOD COUNT 12.6 10^3/uL (4.0-10.5)
[2016-09-11 09:44] LABS: APPEARANCE,URINE CLOUDY; BILIRUBIN,URINE NEGATIVE (NEGATIVE); GLUCOSE, URINE NEGATIVE (NEGATIVE); KETONES,URINE TRACE mg/dL (NEGATIVE); LEUKOCYTE ESTERASE,URINE TRACE (NEGATIVE); NITRITE,URINE NEGATIVE (NEGATIVE); PROTEIN,URINE 100 mg/dL (NEGATIVE); URINE SPECIFIC GRAVITY 1.017; UROBILINOGEN,URINE NEGATIVE mg/dL (<2.0)
[2016-09-11 09:51] LABS: BASOPHILS % (MANUAL) 0 % (0-2); EOSINOPHILS % (MANUAL) 0 % (0-6); LYMPHOCYTES % (MANUAL) 3 % (13-45); TOTAL CELLS COUNTED 100
[2016-09-11 09:54] LABS: ANISOCYTOSIS SLIGHT; OVALOCYTES SLIGHT; POIKILOCYTOSIS SLIGHT; STOMATOCYTES SLIGHT
[2016-09-11 09:55] LABS: ALANINE AMINOTRANSFERASE 24 U/L (9-52); ALBUMIN 4.2 g/dL (3.5-5.0); ALKALINE PHOSPHATASE 44 U/L (38-126); ANION GAP 13 (5-19); ASPARTATE AMINO TRANSFERASE 27 U/L (14-36); BILIRUBIN,TOTAL 0.6 mg/dL (0.2-1.3); BLOOD UREA NITROGEN 18 mg/dL (7-20); CALCIUM 8.8 mg/dL (8.4-10.2); CARBON DIOXIDE 26 mmol/L (22-30); CHLORIDE 101 mmol/L (98-107); CREATINE KINASE 41 U/L (30-135); CREATININE RESULT 0.54 mg/dL (0.52-1.25); GLUCOSE 143 mg/dL (75-110); POTASSIUM 4.2 mmol/L (3.6-5.0); SODIUM 140.3 mmol/L (137-145)
[2016-09-11 09:58] LABS: TOXIC GRANULATION SLIGHT; TOXIC VACUOLATION PRESENT
[2016-09-11 10:06] LABS: CREATINE KINASE MB 1.29 ng/mL (<4.55)
[2016-09-11 10:09] LABS: TROPONIN I < 0.012 ng/mL
[2016-09-11] MEDS ORDERED: ACETAMINOPHEN 325 MG TABLET PO ONE (10:50)
[2016-09-11 13:56] VITALS: BP 147/73
== END 2016-09-11 13:50 | disposition home or self-care (01) ==
LOC: ER 08:23
DX: R11.2 Nausea with vomiting, unspecified (principal); R19.7 Diarrhea, unspecified; I48.91 Unspecified atrial fibrillation; I25.10 Atherosclerotic heart disease of native coronary artery without angina pectoris; E78.00 Pure hypercholesterolemia, unspecified; I10 Essential (primary) hypertension; E11.9 Type 2 diabetes mellitus without complications; K21.9 Gastro-esophageal reflux disease without esophagitis; Z88.2 Allergy status to sulfonamides; Z91.09 Other allergy status, other than to drugs and biological substances; Z91.013 Allergy to seafood
CPT/HCPCS: 99285; 96361; 96374; 36415; 82553; 82550; 85025; 80053; 81001; 84484; 74022; A9270; J2405; J7030

== ENCOUNTER 2016-11-26 15:29 | Emergency (ER) | payer MEDICARE, OTHER ==
[2016-11-26] MEDS ORDERED: MORPHINE SULFATE 10 MG/ML INJ IV ONE (15:46)
[2016-11-26] MEDS ORDERED: MORPHINE SULFATE 10 MG/ML INJ ONE (15:46)
[2016-11-26] MEDS ORDERED: MAG HYDROX/AL HYDROX/SIMETH SUSP 30 ML UDCUP PO ONE (15:47)
--- NOTE | 2016-11-26 15:52 | ER Document Report ---
ED General - General Chief Complaint: Chest Pain > 30 Stated Complaint: CHEST PAIN Time seen by provider: 15:35 Mode of Arrival: Medic Information source: Patient Notes: 86-year-old female reports sudden onset of sharp pain in the left breast radiating into the left back associated with shortness of breath and diaphoresis that began while eating this afternoon. She reports it lasted a few minutes and resolved and then came back about 30 minutes later. Patient reports she has history of angina but doesn't recall that felt similar to this or not. Patient is resident of [facility] assisted living carries a diagnosis of dementia and outpatient DO NOT RESUSCITATE status. He reports no associated nausea or vomiting with her symptoms today. She doesn't recall she' s had symptoms like this in the past. Physical Exam: General: Alert, appears well. HEENT: Normocephalic. Atraumatic. PERRLA. Extraocular movements intact. Oropharynx clear. Neck: Supple. Non-tender. Respiratory: No respiratory distress. Clear and equal breath sounds bilaterally. Mildly tender to palpation on the left anteriorly which reproduces patient's pain. No lesions are noted Cardiovascular: Regular rate and rhythm. PMI not displaced Abdominal: Normal Inspection. Soft, non-tender. No distension. Normal Bowel Sounds. Back: Non-tender. No deformity or step off. Extremities: Extremities all warm with 2+ pulses no cyanosis no edema no Homans sign good range of motion without discomfort Neurological: Speech clear answers questions appropriately manager credit collections strength 5 out of 5 equal both upper tremors motor function 5 out of 5 equal both lower extremities Psychological: Normal affect. Normal Mood. Skin: Warm. Dry. Normal color. TRAVEL OUTSIDE OF THE [place] IN LAST 30 DAYS: No - Related Data Allergies/Adverse Reactions: lidocaine [Lidocaine] Allergy (Severe, Verified 12/15/14 14:28) heart problems clonidine [Clonidine] Allergy (Verified 12/15/14 14:28) nifedipine [From Procardia] Allergy (Verified 12/15/14 14:28) Sulfa (Sulfonamide Antibiotics) Allergy (Verified 12/15/14 14:28) Shellfish * [Shellfish] Adverse Reaction (Verified 12/15/14 14:28) cat dander Allergy (Uncoded 12/15/14 14:28) dog dander Allergy (Uncoded 12/15/14 14:28) Past Medical History - Social History Smoking Status: Never Smoker Family History: DM, Other - [place]-brother, sister, mother Stroke- brother, mother - Past Medical History Cardiac Medical History: Reports: Hx Atrial Fibrillation, Hx Coronary Artery Disease, Hx Hypercholesterolemia, Hx Hypertension Denies: Hx Congestive Heart Failure, Hx Heart Attack Pulmonary Medical History: Denies: Hx Asthma, Hx Bronchitis, Hx COPD, Hx Pneumonia, Hx Tuberculosis Neurological Medical History: Denies: Hx Seizures Endocrine Medical History: Reports: Hx Diabetes Mellitus Type 2 - diet controlled, Hx Hypothyroidism Renal/ Medical History: Denies: Hx End Stage Renal Disease, Hx Kidney Stones GI Medical History: Reports: Hx Gastroesophageal Reflux Disease, Hx Ulcer. Denies: Hx Cirrhosis Musculoskeltal Medical History: Reports Hx Arthritis, Reports Hx Fibromyalgia, Denies Hx Multiple Sclerosis Psychiatric Medical History: Reports: Hx Anxiety, Hx Dementia, Hx Depression Denies: Hx Bipolar Disorder, Hx Schizophrenia Past Surgical History: Reports: Hx Orthopedic Surgery - cervical fusion, Hx Thyroid Surgery - partial thyroidectomy - Immunizations Hx Diphtheria, Pertussis, Tetanus Vaccination: No Hx Pneumococcal Vaccination: 08/17/10 Review of Systems - Review of Systems Constitutional: denies: Chills, Fever, Weakness EENT: denies: Ear pain, Throat pain Cardiovascular: See HPI. denies: Syncope Respiratory: denies: Cough, Wheezing Gastrointestinal: denies: Abdominal pain, Diarrhea, Blood in vomit, Black stools , Rectal bleeding Genitourinary: denies: Burning, Dysuria Female Genitourinary: Post menopausal Musculoskeletal: See HPI. denies: Leg swelling, Ankle swelling Skin: denies: Rash Hematologic/Lymphatic: denies: Swollen glands Neurological/Psychological: denies: Weakness, Numbness Physical Exam - Vital signs Vitals: Resp 17 11/26/16 15:45 Course - Re-evaluation Re-evalutation: 11/26/16 17:47 Reevaluation shows patient to be asleep when awakened she reports no further chest discomfort. Etiology for her symptoms is unclear though I suspect reflux or gastritis. Even if we were certain that the etiology was cardiac however given her advanced age DO NOT RESUSCITATE status and early dementia and aggressive cardiac workup and intervention is not in her best interest. She is already on aspirin and Nexium as an outpatient. We'll have her follow her physician Dr. Mitchell next week - Vital Signs Vital signs: Temp Pulse Resp BP Pulse Ox 17 98 11/26/16 17:00 11/26/16 17:00 - Laboratory Result Diagrams: 11/26/16 15:37 11/26/16 15:37 Laboratory results interpreted by me: 11/26/16 11/26/16 15:37 15:37 Hgb 11.9 L Hct 33.8 L Creatinine 0.47 L Glucose 125 H - Diagnostic Test Radiology reviewed: Image reviewed, Reports reviewed - EKG Interpretation by Me Additional EKG results interpreted by me: 11/26/16 15:56 EKG reviewed by myself shows sinus rhythm at 71 right bundle branch block left anterior fascicular block no acute changes Discharge - Discharge Clinical Impression: Chest pain Qualifiers: Chest pain type: unspecified Qualified Code(s): R07.9 - Chest pain, unspecified Condition: Stable Disposition: HOME-ASSISTED LIVING Referrals: GERARD GARCES MD [Primary Care Provider] - Follow up in 1 week
[2016-11-26 15:58] LABS: ABSOLUTE EOSINOPHILS # (AUTO) 0.1 10^3/uL (0.0-0.6); ABSOLUTE LYMPHOCYTES (AUTO) 1.4 10^3/uL (0.5-4.7); ABSOLUTE MONOCYTES (AUTO) 0.4 10^3/uL (0.1-1.4); ABSOLUTE NEUT (AUTO) 3.2 10^3/uL (1.7-8.2); BASOPHILS % (AUTO) 0.9 % (0-2); EOSINOPHILS % (AUTO) 1.8 % (0-6); HEMATOCRIT 33.8 % (36.0-47.0); HEMOGLOBIN 11.9 g/dL (12.0-15.5); HGB HCT DIFFERENCE 1.9; LYMPHOCYTES % (AUTO) 27.4 % (13-45); MEAN CORPUSCULAR HEMOGLOBIN 31.8 pg (27.0-33.4); MEAN CORPUSCULAR HGB CONC 35.3 g/dL (32.0-36.0); MEAN CORPUSCULAR VOLUME 90 fl (80-97); MONOCYTES % (AUTO) 8.2 % (3-13); RED BLOOD COUNT 3.75 10^6/uL (3.72-5.28); RED CELL DISTRIBUTION WIDTH 13.5 % (11.5-14.0); SEGMENTED NEUTROPHILS % (AUTO) 61.7 % (42-78); WHITE BLOOD COUNT 5.1 10^3/uL (4.0-10.5)
[2016-11-26 16:16] LABS: ALANINE AMINOTRANSFERASE 26 U/L (9-52); ALBUMIN 3.7 g/dL (3.5-5.0); ALKALINE PHOSPHATASE 38 U/L (38-126); ANION GAP 11 (5-19); ASPARTATE AMINO TRANSFERASE 23 U/L (14-36); BILIRUBIN,DIRECT 0.3 mg/dL (0.0-0.4); BILIRUBIN,TOTAL 0.4 mg/dL (0.2-1.3); BLOOD UREA NITROGEN 12 mg/dL (7-20); CALCIUM 8.7 mg/dL (8.4-10.2); CARBON DIOXIDE 27 mmol/L (22-30); CHLORIDE 101 mmol/L (98-107); CREATINE KINASE 43 U/L (30-135); CREATININE RESULT 0.47 mg/dL (0.52-1.25); GLUCOSE 125 mg/dL (75-110); LIPASE 73.6 U/L (23-300); SODIUM 138.9 mmol/L (137-145); TOTAL PROTEIN 6.8 g/dL (6.3-8.2)
[2016-11-26 16:29] LABS: TROPONIN I < 0.012 ng/mL
--- NOTE | 2016-11-26 19:06 | EKG REPORT ---
SEVERITY:- ABNORMAL ECG - SINUS RHYTHM RBBB AND LAFB : Confirmed by: Wicho Calderon MD 26-Nov-2016 19:05:35
[2016-11-27 01:26] VITALS: BP 140/54
== END 2016-11-27 01:23 | disposition home health service (06) ==
LOC: ER 15:29
DX: R07.9 Chest pain, unspecified (principal); R06.02 Shortness of breath; R61 Generalized hyperhidrosis
CPT/HCPCS: 93005; 99285; 96374; 36415; 82553; 82550; 83690; 85025; 80053; 84484; 71010; 93010; J2270

== ENCOUNTER 2016-12-09 01:59 | Observation (INO) | payer MEDICARE, OTHER ==
[2016-12-09] MEDS ORDERED: ASPIRIN 81 MG TABLET, CHEWABLE PO ONE (02:09)
--- NOTE | 2016-12-09 02:13 | ER Document Report ---
ED General - General Stated Complaint: CHEST DISCOMFORT/EYE PAIN Time seen by provider: 02:11 Mode of Arrival: Ambulatory Information source: Patient Notes: This is an 86-year-old female with a history of COPD, diabetes, dyslipidemia, chronic pain syndrome, hypertension. The patient was at [facility] and she developed chest discomfort, left face pain, left eye pain, left arm numbness. Patient was given a nitroglycerin before EMS arrival with improvement of her chest pain. TRAVEL OUTSIDE OF THE [place] IN LAST 30 DAYS: No - HPI Onset: Just prior to arrival Onset/Duration: Sudden Quality of pain: Dull Severity: Moderate Pain Level: 3 Associated symptoms: denies: Chills, Fever, Nausea, Vomiting, Shortness of breath Exacerbated by: Denies Relieved by: Denies Similar symptoms previously: No Recently seen / treated by doctor: No - Related Data Allergies/Adverse Reactions: lidocaine [Lidocaine] Allergy (Severe, Verified 12/15/14 14:28) heart problems clonidine [Clonidine] Allergy (Verified 12/15/14 14:28) nifedipine [From Procardia] Allergy (Verified 12/15/14 14:28) Sulfa (Sulfonamide Antibiotics) Allergy (Verified 12/15/14 14:28) Shellfish * [Shellfish] Adverse Reaction (Verified 12/15/14 14:28) cat dander Allergy (Uncoded 12/15/14 14:28) dog dander Allergy (Uncoded 12/15/14 14:28) Past Medical History - General Information source: Patient - Social History Smoking Status: Former Smoker Cigarette use (# per day): No Chew tobacco use (# tins/day): No Frequency of alcohol use: None Drug Abuse: None Lives with: Family Family History: DM, Other - [place]-brother, sister, mother Stroke- brother, mother - Past Medical History Cardiac Medical History: Reports: Hx Atrial Fibrillation, Hx Coronary Artery Disease, Hx Hypercholesterolemia, Hx Hypertension Denies: Hx Congestive Heart Failure, Hx Heart Attack Pulmonary Medical History: Denies: Hx Asthma, Hx Bronchitis, Hx COPD, Hx Pneumonia, Hx Tuberculosis Neurological Medical History: Denies: Hx Seizures Endocrine Medical History: Reports: Hx Diabetes Mellitus Type 2 - diet controlled, Hx Hypothyroidism Renal/ Medical History: Denies: Hx End Stage Renal Disease, Hx Kidney Stones GI Medical History: Reports: Hx Gastroesophageal Reflux Disease, Hx Ulcer. Denies: Hx Cirrhosis Musculoskeltal Medical History: Reports Hx Arthritis, Reports Hx Fibromyalgia, Denies Hx Multiple Sclerosis Psychiatric Medical History: Reports: Hx Anxiety, Hx Dementia, Hx Depression Denies: Hx Bipolar Disorder, Hx Schizophrenia Past Surgical History: Reports: Hx Orthopedic Surgery - cervical fusion, Hx Thyroid Surgery - partial thyroidectomy - Immunizations Hx Diphtheria, Pertussis, Tetanus Vaccination: No Hx Pneumococcal Vaccination: 08/17/10 Review of Systems - Review of Systems Constitutional: denies: Chills, Fever EENT: No symptoms reported Cardiovascular: See HPI Respiratory: No symptoms reported Gastrointestinal: No symptoms reported Genitourinary: No symptoms reported Female Genitourinary: No symptoms reported Musculoskeletal: No symptoms reported Skin: No symptoms reported Hematologic/Lymphatic: No symptoms reported Neurological/Psychological: See HPI Physical Exam - Vital signs Vitals: Pulse Ox 97 12/09/16 02:09 Notes: Physical exam: GENERAL: 86-year-old female, alert and oriented 3, no acute distress HEAD: Atraumatic, normocephalic. EYES: Pupils equal round and reactive to light (no fixed mid dilated pupil)., extraocular movements intact, sclera anicteric, conjunctiva are normal. No haziness of the cornea. Irvin-Pen pressures of both eyes reveal a pressure of 10 to the right eye and a pressure of 11 to the left eye. ENT: TMs normal, nares patent, oropharynx clear without exudates. Moist mucous membranes. NECK: Normal range of motion, supple without lymphadenopathy or JVD. LUNGS: Breath sounds clear to auscultation bilaterally and equal. No wheezes rales or rhonchi. HEART: Regular rate and rhythm without murmurs, rubs or gallops. ABDOMEN: Soft, normoactive bowel sounds. No tenderness to palpation. No guarding, no rebound. No masses appreciated. EXTREMITIES: Normal range of motion, no pitting or edema. No clubbing or cyanosis. NEUROLOGICAL: Cranial nerves II through XII grossly intact. Normal speech, moving all extremities. Patient does have arthritis of the upper extremities is limited range of motion from this. PSYCH: Normal mood, normal affect. SKIN: Warm, Dry, normal turgor, no rashes or lesions noted. Course - Vital Signs Vital signs: Temp Pulse Resp BP Pulse Ox 97 12/09/16 02:09 - Laboratory Result Diagrams: 12/09/16 02:32 04/25/17 02:32 Laboratory results interpreted by me: 12/09/16 02:32 Creatinine 0.51 L Glucose 116 H - Diagnostic Test Radiology reviewed: Image reviewed, Reports reviewed - CT of the head shows no acute findings. Chest x-ray shows no infiltrates - EKG Interpretation by Me Rate: Normal Rhythm: NSR - EKG shows normal sinus rhythm with a ventricular rate of 74 left anterior hemiblock, right bundle branch block, PVCs, no acute ST depression or elevation. Discharge - Discharge Clinical Impression: chest pain Condition: Stable Disposition: ADMITTED OBSERVATION Admitting Provider: [facility] Admitted: Telemetry
--- NOTE | 2016-12-09 02:20 | ER Document Report ---
ED General - General Stated Complaint: CHEST DISCOMFORT/EYE PAIN Mode of Arrival: Ambulatory TRAVEL OUTSIDE OF THE [place] IN LAST 30 DAYS: No - Related Data Allergies/Adverse Reactions: lidocaine [Lidocaine] Allergy (Severe, Verified 12/15/14 14:28) heart problems clonidine [Clonidine] Allergy (Verified 12/15/14 14:28) nifedipine [From Procardia] Allergy (Verified 12/15/14 14:28) Sulfa (Sulfonamide Antibiotics) Allergy (Verified 12/15/14 14:28) Shellfish * [Shellfish] Adverse Reaction (Verified 12/15/14 14:28) cat dander Allergy (Uncoded 12/15/14 14:28) dog dander Allergy (Uncoded 12/15/14 14:28) Past Medical History - General Information source: Patient - Social History Family History: DM, Other - [place]-brother, sister, mother Stroke- brother, mother - Past Medical History Cardiac Medical History: Reports: Hx Atrial Fibrillation, Hx Coronary Artery Disease, Hx Hypercholesterolemia, Hx Hypertension Denies: Hx Congestive Heart Failure, Hx Heart Attack Pulmonary Medical History: Denies: Hx Asthma, Hx Bronchitis, Hx COPD, Hx Pneumonia, Hx Tuberculosis Neurological Medical History: Denies: Hx Seizures Endocrine Medical History: Reports: Hx Diabetes Mellitus Type 2 - diet controlled, Hx Hypothyroidism Renal/ Medical History: Denies: Hx End Stage Renal Disease, Hx Kidney Stones GI Medical History: Reports: Hx Gastroesophageal Reflux Disease, Hx Ulcer. Denies: Hx Cirrhosis Musculoskeltal Medical History: Reports Hx Arthritis, Reports Hx Fibromyalgia, Denies Hx Multiple Sclerosis Psychiatric Medical History: Reports: Hx Anxiety, Hx Dementia, Hx Depression Denies: Hx Bipolar Disorder, Hx Schizophrenia Past Surgical History: Reports: Hx Orthopedic Surgery - cervical fusion, Hx Thyroid Surgery - partial thyroidectomy - Immunizations Hx Diphtheria, Pertussis, Tetanus Vaccination: No Hx Pneumococcal Vaccination: 08/17/10
[2016-12-09 02:52] LABS: ABSOLUTE BASOPHILS # (AUTO) 0.1 10^3/uL (0.0-0.2); ABSOLUTE EOSINOPHILS # (AUTO) 0.2 10^3/uL (0.0-0.6); ABSOLUTE LYMPHOCYTES (AUTO) 1.5 10^3/uL (0.5-4.7); ABSOLUTE MONOCYTES (AUTO) 0.7 10^3/uL (0.1-1.4); ABSOLUTE NEUT (AUTO) 4.1 10^3/uL (1.7-8.2); BASOPHILS % (AUTO) 0.9 % (0-2); EOSINOPHILS % (AUTO) 2.4 % (0-6); HEMATOCRIT 39.4 % (36.0-47.0); HEMOGLOBIN 13.4 g/dL (12.0-15.5); HGB HCT DIFFERENCE 0.8; LYMPHOCYTES % (AUTO) 23.2 % (13-45); MEAN CORPUSCULAR HEMOGLOBIN 30.8 pg (27.0-33.4); MEAN CORPUSCULAR VOLUME 91 fl (80-97); MONOCYTES % (AUTO) 10.6 % (3-13); RED BLOOD COUNT 4.35 10^6/uL (3.72-5.28); RED CELL DISTRIBUTION WIDTH 13.7 % (11.5-14.0); SEGMENTED NEUTROPHILS % (AUTO) 62.9 % (42-78); WHITE BLOOD COUNT 6.6 10^3/uL (4.0-10.5)
[2016-12-09 02:56] LABS: ALANINE AMINOTRANSFERASE 31 U/L (9-52); ALBUMIN 4.5 g/dL (3.5-5.0); ALKALINE PHOSPHATASE 46 U/L (38-126); ANION GAP 13 (5-19); ASPARTATE AMINO TRANSFERASE 29 U/L (14-36); BILIRUBIN,DIRECT 0.3 mg/dL (0.0-0.4); BILIRUBIN,TOTAL 0.6 mg/dL (0.2-1.3); BLOOD UREA NITROGEN 12 mg/dL (7-20); CALCIUM 9.4 mg/dL (8.4-10.2); CARBON DIOXIDE 28 mmol/L (22-30); CHLORIDE 103 mmol/L (98-107); CREATINE KINASE 38 U/L (30-135); CREATININE RESULT 0.51 mg/dL (0.52-1.25); GLUCOSE 116 mg/dL (75-110)
[2016-12-09 03:08] LABS: CREATINE KINASE MB 1.32 ng/mL (<4.55); TROPONIN I < 0.012 ng/mL
[2016-12-09 03:51] LABS: APPEARANCE,URINE CLEAR; BILIRUBIN,URINE NEGATIVE (NEGATIVE); GLUCOSE, URINE NEGATIVE (NEGATIVE); KETONES,URINE NEGATIVE (NEGATIVE); LEUKOCYTE ESTERASE,URINE NEGATIVE (NEGATIVE); NITRITE,URINE NEGATIVE (NEGATIVE); PROTEIN,URINE NEGATIVE (NEGATIVE); URINE SPECIFIC GRAVITY 1.004; UROBILINOGEN,URINE NEGATIVE mg/dL (<2.0)
[2016-12-09] MEDS ORDERED: ONDANSETRON 4 MG TAB.RAPDIS PO PRN (08:29)
[2016-12-09] MEDS ORDERED: ALPRAZOLAM 0.25 MG TABLET PO PRN (08:29)
[2016-12-09] MEDS ORDERED: NITROGLYCERIN 0.4 MG/TAB 25 TAB/BOTTLE SL PRN (08:29)
[2016-12-09] MEDS ORDERED: LANSOPRAZOLE 30 MG TAB.RAP.DR PO ONE (09:00)
[2016-12-09] MEDS: ASPIRIN 81 MG TABLET, ENT COATED PO SCH (09:10)
[2016-12-09] MEDS: DOCUSATE SODIUM 100 MG CAPSULE PO SCH (09:11)
[2016-12-09] MEDS: MAGNESIUM OXIDE 400 MG TABLET PO SCH (09:11)
[2016-12-09] MEDS: CALCIUM CARBONATE 250 MG/VITAMIN D3 125 UNIT TABLET PO SCH (09:12)
[2016-12-09] MEDS: CETIRIZINE 10 MG TABLET PO SCH (09:13)
[2016-12-09] MEDS: LISINOPRIL 10 MG TABLET PO SCH (09:13)
[2016-12-09] MEDS: PRENATAL VITAMIN W-O CA NO5/FE FUMARATE/FA CAPSULE PO SCH (09:19)
[2016-12-09] MEDS: RALOXIFENE HCL 60 MG TABLET PO SCH (09:19)
[2016-12-09] MEDS ORDERED: LEVOTHYROXINE SODIUM 0.075 MG TABLET PO ONE (09:30)
[2016-12-09] MEDS ORDERED: [UNRECOGNIZED DRUG - OTHER] PO SCH (10:00)
[2016-12-09] MEDS ORDERED: (PENDING PHARMACY ID) (Calcium Carbonate/Vitamin D3 [Calcium 500 + Vit D Caplet] 1 EACH) PO SCH (10:00)
[2016-12-09] MEDS ORDERED: (PENDING PHARMACY ID) (Sennosides [Senna] 8.6 MG) PO SCH (10:00)
[2016-12-09] MEDS ORDERED: PNV95 PO SCH (10:00)
[2016-12-09] MEDS ORDERED: FERROUS FUMARATE PO SCH (10:00)
--- NOTE | 2016-12-09 11:17 | EKG REPORT ---
SEVERITY:- ABNORMAL ECG - SINUS RHYTHM MULTIPLE VENTRICULAR PREMATURE COMPLEXES RBBB AND LAFB : Confirmed by: Seth Valdivia 09-Dec-2016 11:16:01
--- NOTE | 2016-12-09 11:18 | EKG REPORT ---
SEVERITY:- ABNORMAL ECG - SINUS RHYTHM MULTIPLE VENTRICULAR PREMATURE COMPLEXES RBBB AND LAFB : Confirmed by: Seth Valdivia 09-Dec-2016 11:17:19
[2016-12-09] MEDS: NORMAL SALINE 1000 ML 1,000 ML IV PRN (12:35)
[2016-12-09 12:37] LABS: PARTIAL THROMBOPLASTIN TIME 24.2 SEC (23.5-35.8)
[2016-12-09] MEDS: ACETAMINOPHEN 325 MG TABLET PO PRN (12:37)
[2016-12-09 12:46] LABS: CREATINE KINASE MB 0.88 ng/mL (<4.55)
[2016-12-09 12:52] LABS: TROPONIN I < 0.012 ng/mL
--- NOTE | 2016-12-09 18:16 | PDOC H&P ---
History of Present Illness Admission Date/PCP: 12/09/16 08:26 GERARD DEZ Patient complains of: Chest pain, left eye pain History of Present Illness: RADHA RIVAS is a 86 year old female resident at [facility] who was brought to the Ed with concern for chest discomfort that she described as pressure in her chest with associated left sided facial numbness and left eye pain. She reported some improvement in her symptoms upon administration of sublingual nitroglycerin by the EMS personnel. She denied any radiation of pain to neck, jaw, shoulder, or upper extremity. No associated shortness of breath, palpitation, diaphoresis, nausea, or vomiting. Patient was at comfort at the time of my evaluation while in the ED. Past Medical History Cardiac Medical History: Reports: Atrial Fibrillation, Coronary Artery Disease, Hyperlipidema, Hypertension Denies: Congestive Heart Failure, Myocardial Infarction Pulmonary Medical History: Denies: Asthma, Bronchitis, Chronic Obstructive Pulmonary Disease (COPD), Pneumonia, Tuberculosis Neurological Medical History: Denies: Seizures Endocrine Medical History: Reports: Diabetes Mellitus Type 2 - diet controlled, Hypothyroidism Renal/ Medical History: Denies: End Stage Renal Disease GI Medical History: Reports: Gastroesophageal Reflux Disease Denies: Cirrhosis Musculoskeltal Medical History: Reports: Arthritis, Fibromyalgia Psychiatric Medical History: Reports: Dementia, Depression Denies: Bipolar Disorder Hematology: Reports: Anemia Denies: Bleeding Tendencies Past Surgical History Past Surgical History: Reports: Orthopedic Surgery - cervical fusion Social History Lives with: Family Smoking Status: Never Smoker Frequency of Alcohol Use: None Hx Recreational Drug Use: No Drugs: None Hx Prescription Drug Abuse: No - Advance Directive Resuscitation Status: Do Not Resuscitate Family History Family History: DM, Other - [place]-brother, sister, mother Stroke- brother, mother Parental Family History Reviewed: Yes Children Family History Reviewed: Yes Sibling(s) Family History Reviewed.: Yes Medication/Allergy Home Medications: Acetaminophen [Tylenol 325 mg Tablet] 325 mg PO MEALS 12/09/16 Alprazolam [Xanax 0.25 mg Tablet] 0.25 mg PO Q12HP PRN 12/09/16 Aspirin [Ecotrin 81 mg EC Tablet] 81 mg PO DAILY 12/09/16 Calcium Carbonate/Vitamin D3 [Calcium 500 + Vit D Caplet] 1 each PO DAILY Cetirizine HCl [Zyrtec 10 mg Tablet] 10 mg PO DAILY 12/09/16 Docusate Sodium [Colace 100 mg Capsule] 100 mg PO DAILY 12/09/16 Esomeprazole Magnesium [Nexium] 40 mg PO DAILY 12/09/16 Levothyroxine Sodium [Synthroid 0.075 mg Tablet] 0.075 mg PO QAM 12/09/16 Lisinopril [Prinivil 10 mg Tablet] 10 mg PO DAILY 12/09/16 Magnesium Oxide [Mag-Ox 400 mg Tablet] 400 mg PO DAILY 12/09/16 Nitroglycerin [Nitrostat] 0.4 mg SL Q5MP PRN 12/09/16 Ondansetron [Zofran Odt 4 mg Tablet] 4 mg SL Q4HP PRN 12/09/16 Vit No.124/Iron/FA [ Vitamin Tablet] 1 each PO DAILY 12/09/16 Raloxifene HCl [Evista 60 mg Tablet] 60 mg PO DAILY 12/09/16 Sennosides [Senna] 8.6 mg PO DAILY 12/09/16 Sertraline HCl [Zoloft] 100 mg PO QHS 12/09/16 Trazodone HCl [Desyrel 50 mg Tablet] 50 mg PO QHS 12/09/16 Zolpidem Tartrate [Ambien 5 mg Tablet] 5 mg PO HSP PRN 12/09/16 Allergies/Adverse Reactions: lidocaine [Lidocaine] Allergy (Severe, Verified 12/09/16 07:50) heart problems clonidine [Clonidine] Allergy (Verified 12/09/16 07:50) nifedipine [From Procardia] Allergy (Verified 12/09/16 07:50) Sulfa (Sulfonamide Antibiotics) Allergy (Verified 12/09/16 07:50) Shellfish * [Shellfish] Adverse Reaction (Verified 12/09/16 07:50) cat dander Allergy (Uncoded 12/09/16 07:50) dog dander Allergy (Uncoded 12/09/16 07:50) Review of Systems Constitutional: ABSENT: chills, fever(s), headache(s), weight gain, weight loss Eyes: PRESENT: visual disturbances - with regard to left eye pain Ears: PRESENT: hearing changes - some demonstrable hearing impairment Nose, Mouth, and Throat: ABSENT: as per HPI, headache(s), mouth pain, sore throat, vertigo, other Cardiovascular: PRESENT: chest pain. ABSENT: as per HPI, dyspnea on exertion, edema, orthropnea, palpitations, other Respiratory: ABSENT: as per HPI, cough, dyspnea, hemoptysis, sputum, other Gastrointestinal: ABSENT: as per HPI, abdominal pain, bloating, coffee ground emesis, constipation, diarrhea, dysphagia, heartburn, hematemesis, hematochezia , melena, nausea, vomiting, other Genitourinary: ABSENT: dysuria, hematuria Musculoskeletal: PRESENT: deformity - related to multiple joint involvement with arthritis. ABSENT: as per HPI, back pain, joint swelling, muscle weakness , other Neurological: PRESENT: numbness. ABSENT: as per HPI, abnormal gait, abnormal movements, abnormal speech, confusion, convulsions, dizziness, focal weakness, frequent falls, lack of coordination, memory loss, paresthesias, restless legs, syncope, tingling, tremor(s), vertigo, weakness, other Psychiatric: PRESENT: anxiety - baseline health issue. ABSENT: as per HPI, depression, hallucinations, homidical ideation, suicidal ideation, other Endocrine: ABSENT: cold intolerance, heat intolerance, polydipsia, polyuria Hematologic/Lymphatic: ABSENT: easy bleeding, easy bruising, lymphadenopathy Physical Exam Vital Signs: Temp Pulse Resp BP Pulse Ox 98.1 F 94 18 109/58 L 98 12/09/16 12:05 12/09/16 14:00 12/09/16 12:05 12/09/16 12:05 12/09/16 12:05 Intake & Output 12/08/16 12/09/16 12/10/16 06:59 06:59 06:59 Intake Total 341 Balance 341 General appearance: PRESENT: no acute distress, cooperative Head exam: PRESENT: atraumatic, normocephalic Eye exam: PRESENT: conjunctiva pink, EOMI, PERRLA, other - no demonstrable tenderness to palaptionof eyeballs. ABSENT: scleral icterus Ear exam: PRESENT: normal external ear exam Mouth exam: PRESENT: moist, tongue midline Teeth exam: ABSENT: dental caries, dental tenderness, edentulous, poor dentation , other Throat exam: ABSENT: post pharyngeal erythema, tonsillar erythema, tonsillar exudate, tonsillogmegaly, other Neck exam: PRESENT: full ROM. ABSENT: carotid bruit, JVD, lymphadenopathy, thyromegaly Respiratory exam: PRESENT: clear to auscultation haven Cardiovascular exam: PRESENT: RRR. ABSENT: diastolic murmur, rubs, systolic murmur Pulses: PRESENT: normal dorsalis pedis pul, +2 pedal pulses bilateral Vascular exam: PRESENT: normal capillary refill GI/Abdominal exam: PRESENT: normal bowel sounds, soft. ABSENT: distended, guarding, mass, organolmegaly, rebound, tenderness Rectal exam: PRESENT: deferred Extremities exam: PRESENT: full ROM Musculoskeletal exam: PRESENT: deformity - related to multiple joints involvement with arthritis Neurological exam: PRESENT: alert, awake, oriented to person, oriented to place , oriented to time, oriented to situation, CN II-XII grossly intact, motor sensory deficit Psychiatric exam: PRESENT: anxious - related to her baseline health issue. ABSENT: agitated, appropriate affect, depressed, flat affect, homicidal ideation , manic, normal mood, suicidal ideation, unusual affect, other Skin exam: PRESENT: dry, intact, warm. ABSENT: cyanosis, rash Results Laboratory Results: 12/09/16 12/09/16 11:55 11:55 Creatine Kinase 26 L CK-MB (CK-2) 0.88 Troponin I < 0.012 Impressions: Chest X-Ray 12/09/16 02:09 IMPRESSION: NO ACUTE RADIOGRAPHIC FINDING IN THE CHEST. Head CT 12/09/16 02:09 IMPRESSION: No acute or suspicious findings. Assessment & Plan - Diagnosis (1) Pain, eye, left Is this a current diagnosis for this admission?: YesPlan: See admitting physician orders. (2) Chest pain Qualifiers: Chest pain type: unspecified Qualified Code(s): R07.9 - Chest pain, unspecified Is this a current diagnosis for this admission?: YesPlan: See admitting physician orders. (3) Diabetes mellitus type 2, diet-controlled Is this a current diagnosis for this admission?: YesPlan: See admitting physician orders. (4) GERD (gastroesophageal reflux disease) Qualifiers: Esophagitis presence: without esophagitis Qualified Code(s): K21.9 - Gastro-esophageal reflux disease without esophagitis Is this a current diagnosis for this admission?: YesPlan: See admitting physician orders. (5) HTN (hypertension) Qualifiers: Hypertension type: essential hypertension Qualified Code(s): I10 - Essential (primary) hypertension Is this a current diagnosis for this admission?: YesPlan: See admitting physician orders. (6) Hyperlipidemia Qualifiers: Hyperlipidemia type: pure hypercholesterolemia Qualified Code(s): E78.00 - Pure hypercholesterolemia, unspecified; E78.0 - Pure hypercholesterolemia Is this a current diagnosis for this admission?: YesPlan: See admitting physician orders. (7) Hypothyroidism Qualifiers: Hypothyroidism type: acquired Qualified Code(s): E03.9 - Hypothyroidism, unspecified Is this a current diagnosis for this admission?: YesPlan: See admitting physician orders. - Time Time Spent: 50 to 70 Minutes Medications reviewed and adjusted accordingly: Yes Anticipated discharge: Home - [facility] Within: within 24 hours - Inpatient Certification Based on my medical assessment, after consideration of the patient's comorbidities, presenting symptoms, or acuity I expect that the services needed warrant INPATIENT care.: No I certify that my determination is in accordance with my understanding of Medicare's requirements for reasonable and necessary INPATIENT services [42 CFR 412.3e].: No Medical Necessity: Need Close Monitoring Due to Risk of Patient Decompensation, Need For IV Fluids, Need For Continuous Telemetry Monitoring, Risk of Complication if Not Cared For in Hospital Post Hospital Care: D/C [employer] Documentation - Plan Summary Plan Summary: See admitting physician orders.
[2016-12-09 19:50] LABS: CREATINE KINASE MB 0.77 ng/mL (<4.55)
[2016-12-09 19:52] LABS: TROPONIN I < 0.012 ng/mL
[2016-12-09] MEDS: TRAZODONE HCL 50 MG TABLET PO SCH (21:41)
[2016-12-09] MEDS: SERTRALINE HCL 50 MG TABLET PO SCH (21:42)
[2016-12-10] MEDS: LANSOPRAZOLE 30 MG TAB.RAP.DR PO SCH (05:36)
[2016-12-10] MEDS: NORMAL SALINE 1000 ML 1,000 ML IV PRN (05:36)
[2016-12-10 06:50] LABS: ABSOLUTE EOSINOPHILS # (AUTO) 0.1 10^3/uL (0.0-0.6); ABSOLUTE LYMPHOCYTES (AUTO) 1.1 10^3/uL (0.5-4.7); ABSOLUTE MONOCYTES (AUTO) 0.5 10^3/uL (0.1-1.4); ABSOLUTE NEUT (AUTO) 4.6 10^3/uL (1.7-8.2); BASOPHILS % (AUTO) 0.4 % (0-2); EOSINOPHILS % (AUTO) 1.6 % (0-6); HEMATOCRIT 35.8 % (36.0-47.0); HEMOGLOBIN 12.4 g/dL (12.0-15.5); HGB HCT DIFFERENCE 1.4; LYMPHOCYTES % (AUTO) 17.6 % (13-45); MEAN CORPUSCULAR HEMOGLOBIN 31.4 pg (27.0-33.4); MEAN CORPUSCULAR HGB CONC 34.7 g/dL (32.0-36.0); MEAN CORPUSCULAR VOLUME 90 fl (80-97); MONOCYTES % (AUTO) 7.9 % (3-13); RED BLOOD COUNT 3.96 10^6/uL (3.72-5.28); RED CELL DISTRIBUTION WIDTH 13.8 % (11.5-14.0); SEGMENTED NEUTROPHILS % (AUTO) 72.5 % (42-78); WHITE BLOOD COUNT 6.3 10^3/uL (4.0-10.5)
[2016-12-10 07:19] LABS: ALANINE AMINOTRANSFERASE 28 U/L (9-52); ALBUMIN 3.6 g/dL (3.5-5.0); ALKALINE PHOSPHATASE 37 U/L (38-126); ANION GAP 12 (5-19); ASPARTATE AMINO TRANSFERASE 18 U/L (14-36); BILIRUBIN,TOTAL 0.3 mg/dL (0.2-1.3); BLOOD UREA NITROGEN 12 mg/dL (7-20); CALCIUM 8.8 mg/dL (8.4-10.2); CARBON DIOXIDE 24 mmol/L (22-30); CHLORIDE 105 mmol/L (98-107); CREATININE RESULT 0.49 mg/dL (0.52-1.25); GLUCOSE 106 mg/dL (75-110); POTASSIUM 3.6 mmol/L (3.6-5.0); SODIUM 140.9 mmol/L (137-145); TOTAL PROTEIN 6.4 g/dL (6.3-8.2)
[2016-12-10] MEDS ORDERED: ENOXAPARIN SODIUM INJ 40 MG/0.4 ML DISP.SYRIN SUBCUT SCH (08:00)
[2016-12-10] MEDS: CETIRIZINE 10 MG TABLET PO SCH (09:32)
[2016-12-10] MEDS: DOCUSATE SODIUM 100 MG CAPSULE PO SCH (09:32)
[2016-12-10] MEDS: ASPIRIN 81 MG TABLET, ENT COATED PO SCH (09:32)
[2016-12-10] MEDS: LISINOPRIL 10 MG TABLET PO SCH (09:32)
[2016-12-10] MEDS: MAGNESIUM OXIDE 400 MG TABLET PO SCH (09:32)
[2016-12-10] MEDS: CALCIUM CARBONATE 250 MG/VITAMIN D3 125 UNIT TABLET PO SCH (09:32)
[2016-12-10] MEDS: LEVOTHYROXINE SODIUM 0.075 MG TABLET PO SCH (09:32)
[2016-12-10] MEDS: PRENATAL VITAMIN W-O CA NO5/FE FUMARATE/FA CAPSULE PO SCH (09:32)
[2016-12-10] MEDS: RALOXIFENE HCL 60 MG TABLET PO SCH (09:32)
--- NOTE | 2016-12-10 14:57 | PDOC TRANSFER SUMMARY ---
General Admission Date/PCP: 12/09/16 08:26 MARTHA STONER Admission Date: 12/09/16 Transfer Date: 12/10/16 Accepting Facility: [facility] Accepting Physician: Dr Isaac Resuscitation Status: Do Not Resuscitate - Transfer Diagnosis (1) Unstable angina Is this a current diagnosis for this admission?: YesDiagnosis Summary: Patient was admitted with his chest pain the chest pain was precordial radiating to the jaws, extremely severe It resolved Patient is describing chest pressure on minimal exertion associated with shortness of breath for the past few weeks Initial cardiac enzymes were normal EKG showed a normal sinus rhythm with 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 Patient otherwise remained asymptomatic during her short admission She was placed on Lipitor and aspirin Heparin drip was initiated (2) Diabetes mellitus type 2, diet-controlled Is this a current diagnosis for this admission?: YesDiagnosis Summary: Blood sugars were very well controlled around 100 ; patient was maintained on diabetic diet (3) HTN (hypertension) Is this a current diagnosis for this admission?: YesDiagnosis Summary: Was controlled (4) Hyperlipidemia Is this a current diagnosis for this admission?: YesDiagnosis Summary: Lipitor 80 mg was ordered (5) Hypothyroidism Is this a current diagnosis for this admission?: YesDiagnosis Summary: See above - Transfer Medications Home Medications: Acetaminophen [Tylenol 325 mg Tablet] 325 mg PO MEALS 12/09/16 Alprazolam [Xanax 0.25 mg Tablet] 0.25 mg PO Q12HP PRN 12/09/16 Aspirin [Ecotrin 81 mg EC Tablet] 81 mg PO DAILY 12/09/16 Calcium Carbonate/Vitamin D3 [Calcium 500 + Vit D Caplet] 1 each PO DAILY Cetirizine HCl [Zyrtec 10 mg Tablet] 10 mg PO DAILY 12/09/16 Docusate Sodium [Colace 100 mg Capsule] 100 mg PO DAILY 12/09/16 Esomeprazole Magnesium [Nexium] 40 mg PO DAILY 12/09/16 Levothyroxine Sodium [Synthroid 0.075 mg Tablet] 0.075 mg PO QAM 12/09/16 Lisinopril [Prinivil 10 mg Tablet] 10 mg PO DAILY 12/09/16 Magnesium Oxide [Mag-Ox 400 mg Tablet] 400 mg PO DAILY 12/09/16 Nitroglycerin [Nitrostat] 0.4 mg SL Q5MP PRN 12/09/16 Ondansetron [Zofran Odt 4 mg Tablet] 4 mg SL Q4HP PRN 12/09/16 Vit No.124/Iron/FA [ Vitamin Tablet] 1 each PO DAILY 12/09/16 Raloxifene HCl [Evista 60 mg Tablet] 60 mg PO DAILY 12/09/16 Sennosides [Senna] 8.6 mg PO DAILY 12/09/16 Sertraline HCl [Zoloft] 100 mg PO QHS 12/09/16 Trazodone HCl [Desyrel 50 mg Tablet] 50 mg PO QHS 12/09/16 Zolpidem Tartrate [Ambien 5 mg Tablet] 5 mg PO HSP PRN 12/09/16 Transfer Medications: Current Medications Acetaminophen (Tylenol 325 Mg Tablet) 325 mg PO ACP PRN PRN Reason: FOR PAIN Stop: 01/08/17 08:28 Last Admin: 12/09/16 12:37 Dose: 325 mg Alprazolam (Xanax 0.25 Mg Tablet) 0.25 mg PO Q12HP PRN PRN Reason: ANXIETY Stop: 12/16/16 08:28 Aspirin (Ecotrin 81 Mg Ec Tablet) 81 mg PO DAILY DEE DEE Stop: 01/08/17 09:59 Last Admin: 12/10/16 09:32 Dose: 81 mg Calcium Carbonate ([place] 250 Mg With Vitamin D 125 Units) 2 tab PO DAILY DEE DEE Stop: 01/08/17 09:59 Last Admin: 12/10/16 09:32 Dose: 2 tab Cetirizine HCl (Zyrtec 10 Mg Tablet) 10 mg PO DAILY DEE DEE Stop: 01/08/17 09:59 Last Admin: 12/10/16 09:32 Dose: 10 mg Docusate Sodium (Colace 100 Mg Capsule) 100 mg PO DAILY DEE DEE Stop: 01/08/17 09:59 Last Admin: 12/10/16 09:32 Dose: 100 mg Enoxaparin Sodium (Lovenox Inj 40 Mg/0.4 Ml Disp.Syrin) 40 mg SUBCUT QAM DEE DEE Stop: 01/09/17 07:59 Last Admin: 12/10/16 09:31 Dose: 40 mg Sodium Chloride (Nacl 0.9% 1000 Ml Iv Soln) 1,000 mls @ 50 mls/hr IV CONTINUOUS PRN PRN Reason: THIS MED IS NOT "PRN" Stop: 01/08/17 08:26 Last Admin: 12/10/16 05:36 Dose: 1,000 ml Lansoprazole (Prevacid 30 Mg Odt Tablet) 30 mg PO Q6AM DEE DEE Stop: 01/09/17 05:59 Last Admin: 12/10/16 05:36 Dose: 30 mg Levothyroxine Sodium (Synthroid 0.075 Mg Tablet) 0.075 mg PO QAM DEE DEE Stop: 01/09/17 07:59 Last Admin: 12/10/16 09:32 Dose: 0.075 mg Lisinopril (Prinivil 10 Mg Tablet) 10 mg PO DAILY [facility] Stop: 01/08/17 09:59 Last Admin: 12/10/16 09:32 Dose: 10 mg Magnesium Oxide (Mag-Ox 400 Mg Tablet) 400 mg PO DAILY [facility] Stop: 01/08/17 09:59 Last Admin: 12/10/16 09:32 Dose: 400 mg Multivi/Iron Carb/Fe Sulf/FA/Prenat (-U Multiple Vitamin Capsule) 1 cap PO DAILY DEE DEE Stop: 01/08/17 09:59 Last Admin: 12/10/16 09:32 Dose: 1 cap Nitroglycerin (Nitrostat 0.4 Mg (1/150 Gr) Tabs 25/Bottle) 1 tab SL Q5MP PRN Stop: 01/08/17 08:28 Last Admin: 12/09/16 13:06 Dose: 1 tab Ondansetron HCl (Zofran Odt 4 Mg Tablet) 4 mg PO Q4HP PRN PRN Reason: nausea Stop: 01/08/17 08:28 Patient Own Medication (Sennosides [Senna]) 8.6 mg PO .DAILY [facility] Stop: 01/08/17 09:59 Raloxifene HCl (Evista 60 Mg Tablet) 60 mg PO DAILY [facility] Stop: 01/08/17 09:59 Last Admin: 12/10/16 09:32 Dose: 60 mg Sertraline HCl (Zoloft 50 Mg Tablet) 100 mg PO QHS DEE DEE Stop: 01/08/17 21:59 Last Admin: 12/09/16 21:42 Dose: 100 mg Trazodone HCl (Desyrel 50 Mg Tablet) 50 mg PO QHS DEE DEE Stop: 01/08/17 21:59 Last Admin: 12/09/16 21:41 Dose: 50 mg - Allergies Allergies/Adverse Reactions: lidocaine [Lidocaine] Allergy (Severe, Verified 12/09/16 07:50) heart problems clonidine [Clonidine] Allergy (Verified 12/09/16 07:50) nifedipine [From Procardia] Allergy (Verified 12/09/16 07:50) Sulfa (Sulfonamide Antibiotics) Allergy (Verified 12/09/16 07:50) Shellfish * [Shellfish] Adverse Reaction (Verified 12/09/16 07:50) cat dander Allergy (Uncoded 12/09/16 07:50) dog dander Allergy (Uncoded 12/09/16 07:50) Physical Exam Vital Signs: Temp Pulse Resp BP Pulse Ox 98.4 F 74 18 131/60 H 97 12/10/16 12:00 12/10/16 12:00 12/10/16 12:00 12/10/16 12:00 12/10/16 12:00 Intake & Output 12/09/16 12/10/16 12/11/16 00:59 00:59 00:59 Intake Total 341 1025 Output Total 800 Balance 341 225 General appearance: PRESENT: no acute distress, well-developed, well-nourished Head exam: PRESENT: atraumatic, normocephalic Eye exam: PRESENT: conjunctiva pink, EOMI, PERRLA. ABSENT: scleral icterus Ear exam: PRESENT: normal external ear exam Mouth exam: PRESENT: moist, tongue midline Neck exam: ABSENT: carotid bruit, JVD, lymphadenopathy, thyromegaly Respiratory exam: PRESENT: clear to auscultation haven. ABSENT: rales, rhonchi, wheezes Cardiovascular exam: PRESENT: RRR. ABSENT: diastolic murmur, rubs, systolic murmur Pulses: PRESENT: normal dorsalis pedis pul Vascular exam: PRESENT: normal capillary refill GI/Abdominal exam: PRESENT: normal bowel sounds, soft. ABSENT: distended, guarding, mass, organolmegaly, rebound, tenderness Rectal exam: PRESENT: deferred Extremities exam: PRESENT: full ROM. ABSENT: calf tenderness, clubbing, pedal edema Neurological exam: PRESENT: alert, awake, oriented to person, oriented to place , oriented to time, oriented to situation, CN II-XII grossly intact. ABSENT: motor sensory deficit Psychiatric exam: PRESENT: appropriate affect, normal mood. ABSENT: homicidal ideation, suicidal ideation Skin exam: PRESENT: dry, intact, warm. ABSENT: cyanosis, rash Results Laboratory Results: 12/10/16 06:10 12/10/16 06:10 12/10/16 12/10/16 06:10 06:10 WBC 6.3 RBC 3.96 Hgb 12.4 Hct 35.8 L MCV 90 MCH 31.4 MCHC 34.7 RDW 13.8 Plt Count 196 Seg Neutrophils % 72.5 Lymphocytes % 17.6 Monocytes % 7.9 Eosinophils % 1.6 Basophils % 0.4 Absolute Neutrophils 4.6 Absolute Lymphocytes 1.1 Absolute Monocytes 0.5 Absolute Eosinophils 0.1 Absolute Basophils 0.0 Sodium 140.9 Potassium 3.6 Chloride 105 Carbon Dioxide 24 Anion Gap 12 BUN 12 Creatinine 0.49 L Est GFR ( Amer) > 60 Est GFR (Non-Af Amer) > 60 Glucose 106 Calcium 8.8 Total Bilirubin 0.3 AST 18 ALT 28 Alkaline Phosphatase 37 L Total Protein 6.4 Albumin 3.6 12/09/16 12/09/16 12/09/16 11:55 11:55 18:50 Creatine Kinase 26 L 26 L CK-MB (CK-2) 0.88 Troponin I < 0.012 12/09/16 18:50 Creatine Kinase CK-MB (CK-2) 0.77 Troponin I < 0.012 Labs- Entire Visit 12/09/16 12/09/16 12/09/16 02:32 02:32 02:32 WBC 6.6 RBC 4.35 Hgb 13.4 Hct 39.4 MCV 91 MCH 30.8 MCHC 34.0 RDW 13.7 Plt Count 233 Seg Neutrophils % 62.9 Lymphocytes % 23.2 Monocytes % 10.6 Eosinophils % 2.4 Basophils % 0.9 Absolute Neutrophils 4.1 Absolute Lymphocytes 1.5 Absolute Monocytes 0.7 Absolute Eosinophils 0.2 Absolute Basophils 0.1 PT INR APTT Sodium 144.0 Potassium 4.0 Chloride 103 Carbon Dioxide 28 Anion Gap 13 BUN 12 Creatinine 0.51 L Est GFR ( Amer) > 60 Est GFR (Non-Af Amer) > 60 Glucose 116 H Calcium 9.4 Total Bilirubin 0.6 Direct Bilirubin 0.3 Indirect Bilirubin Not Reportable Neonat Total Bilirubin Not Reportable AST 29 ALT 31 Alkaline Phosphatase 46 Creatine Kinase 38 CK-MB (CK-2) 1.32 Troponin I < 0.012 Total Protein 8.0 Albumin 4.5 Urine Color Urine Appearance Urine pH Ur Specific [place] Urine Protein Urine Glucose (UA) Urine Ketones Urine Blood Urine Nitrite Urine Bilirubin Urine Urobilinogen Ur Leukocyte Esterase Urine WBC (Auto) Urine RBC (Auto) Urine Ascorbic Acid 12/09/16 12/09/16 12/09/16 02:32 06:43 06:43 WBC RBC Hgb Hct MCV MCH MCHC RDW Plt Count Seg Neutrophils % Lymphocytes % Monocytes % Eosinophils % Basophils % Absolute Neutrophils Absolute Lymphocytes Absolute Monocytes Absolute Eosinophils Absolute Basophils PT Cancelled INR Cancelled APTT Cancelled Sodium Potassium Chloride Carbon Dioxide Anion Gap BUN Creatinine Est GFR ( Amer) Est GFR (Non-Af Amer) Glucose Calcium Total Bilirubin Direct Bilirubin Indirect Bilirubin Neonat Total Bilirubin AST ALT Alkaline Phosphatase Creatine Kinase CK-MB (CK-2) Troponin I < 0.012 Total Protein Albumin Urine Color STRAW Urine Appearance CLEAR Urine pH 8.0 Ur Specific [place] 1.004 Urine Protein NEGATIVE Urine Glucose (UA) NEGATIVE Urine Ketones NEGATIVE Urine Blood NEGATIVE Urine Nitrite NEGATIVE Urine Bilirubin NEGATIVE Urine Urobilinogen NEGATIVE Ur Leukocyte Esterase NEGATIVE Urine WBC (Auto) 0 Urine RBC (Auto) 0 Urine Ascorbic Acid NEGATIVE 12/09/16 12/09/16 12/09/16 06:43 06:43 11:55 WBC RBC Hgb Hct MCV MCH MCHC RDW Plt Count Seg Neutrophils % Lymphocytes % Monocytes % Eosinophils % Basophils % Absolute Neutrophils Absolute Lymphocytes Absolute Monocytes Absolute Eosinophils Absolute Basophils PT INR APTT Sodium Potassium Chloride Carbon Dioxide Anion Gap BUN Creatinine Est GFR ( Amer) Est GFR (Non-Af Amer) Glucose Calcium Total Bilirubin Direct Bilirubin Indirect Bilirubin Neonat Total Bilirubin AST ALT Alkaline Phosphatase Creatine Kinase 26 L 26 L CK-MB (CK-2) 0.91 Troponin I Cancelled Total Protein Albumin Urine Color Urine Appearance Urine pH Ur Specific [place] Urine Protein Urine Glucose (UA) Urine Ketones Urine Blood Urine Nitrite Urine Bilirubin Urine Urobilinogen Ur Leukocyte Esterase Urine WBC (Auto) Urine RBC (Auto) Urine Ascorbic Acid 12/09/16 12/09/16 12/09/16 11:55 11:55 18:50 WBC RBC Hgb Hct MCV MCH MCHC RDW Plt Count Seg Neutrophils % Lymphocytes % Monocytes % Eosinophils % Basophils % Absolute Neutrophils Absolute Lymphocytes Absolute Monocytes Absolute Eosinophils Absolute Basophils PT 13.0 INR 0.96 APTT 24.2 Sodium Potassium Chloride Carbon Dioxide Anion Gap BUN Creatinine Est GFR ( Amer) Est GFR (Non-Af Amer) Glucose Calcium Total Bilirubin Direct Bilirubin Indirect Bilirubin Neonat Total Bilirubin AST ALT Alkaline Phosphatase Creatine Kinase 26 L CK-MB (CK-2) 0.88 Troponin I < 0.012 Total Protein Albumin Urine Color Urine Appearance Urine pH Ur Specific [place] Urine Protein Urine Glucose (UA) Urine Ketones Urine Blood Urine Nitrite Urine Bilirubin Urine Urobilinogen Ur Leukocyte Esterase Urine WBC (Auto) Urine RBC (Auto) Urine Ascorbic Acid 12/09/16 12/10/16 12/10/16 18:50 06:10 06:10 WBC 6.3 RBC 3.96 Hgb 12.4 Hct 35.8 L MCV 90 MCH 31.4 MCHC 34.7 RDW 13.8 Plt Count 196 Seg Neutrophils % 72.5 Lymphocytes % 17.6 Monocytes % 7.9 Eosinophils % 1.6 Basophils % 0.4 Absolute Neutrophils 4.6 Absolute Lymphocytes 1.1 Absolute Monocytes 0.5 Absolute Eosinophils 0.1 Absolute Basophils 0.0 PT INR APTT Sodium 140.9 Potassium 3.6 Chloride 105 Carbon Dioxide 24 Anion Gap 12 BUN 12 Creatinine 0.49 L Est GFR ( Amer) > 60 Est GFR (Non-Af Amer) > 60 Glucose 106 Calcium 8.8 Total Bilirubin 0.3 Direct Bilirubin 0.0 Indirect Bilirubin Not Reportable Neonat Total Bilirubin Not Reportable AST 18 ALT 28 Alkaline Phosphatase 37 L Creatine Kinase CK-MB (CK-2) 0.77 Troponin I < 0.012 Total Protein 6.4 Albumin 3.6 Urine Color Urine Appearance Urine pH Ur Specific [place] Urine Protein Urine Glucose (UA) Urine Ketones Urine Blood Urine Nitrite Urine Bilirubin Urine Urobilinogen Ur Leukocyte Esterase Urine WBC (Auto) Urine RBC (Auto) Urine Ascorbic Acid EKG Comments: . SINUS RHYTHM [MVPC] . MULTIPLE VENTRICULAR PREMATURE COMPLEXES [RLAFB] . RBBB AND LAFB [id number] RADHA RIVAS 09-Dec-2016 03:49:29 : 1930 86 Years Female Race: White Dept: ED Room: ED17 Oper: BSIM HR 74 AK 176 QRSD 150 QT 440 QTc 489 -- AXIS -- P 19 QRS -56 T 30 Requested By: TEX BOWEN Order Impressions: Chest X-Ray 12/09/16 02:09 IMPRESSION: NO ACUTE RADIOGRAPHIC FINDING IN THE CHEST. Head CT 12/09/16 02:09 IMPRESSION: No acute or suspicious findings. Plan Discharge Plan: Transfer to [facility] for Cardiac Cath Time Spent: Greater than 30 Minutes
[2016-12-10] MEDS ORDERED: HEPARIN SODIUM,PORCINE/D5W 250 ML IV PRN (15:39)
[2016-12-10] MEDS ORDERED: HEPARIN SOD (PORCINE) 1,000 UNIT/ML 10 ML VIAL IV PRN (15:44)
[2016-12-10] MEDS ORDERED: POTASSIUM CHLORIDE 20 MEQ/15 ML UDCUP PO ONE (15:45)
[2016-12-10] MEDS ORDERED: ATORVASTATIN CALCIUM 80 MG TABLET PO ONE (15:45)
[2016-12-10] MEDS ORDERED: ASPIRIN 325 MG TABLET, ENT COATED PO ONE (15:45)
[2016-12-10 16:05] LABS: PROTHROMBIN TIME 13.9 SEC (11.4-15.4)
[2016-12-10 16:06] LABS: PARTIAL THROMBOPLASTIN TIME 28.3 SEC (23.5-35.8)
[2016-12-10 18:17] LABS: APPEARANCE,URINE CLEAR; BILIRUBIN,URINE NEGATIVE (NEGATIVE); GLUCOSE, URINE NEGATIVE (NEGATIVE); KETONES,URINE NEGATIVE (NEGATIVE); LEUKOCYTE ESTERASE,URINE SMALL (NEGATIVE); NITRITE,URINE NEGATIVE (NEGATIVE); PROTEIN,URINE NEGATIVE (NEGATIVE); URINE SPECIFIC GRAVITY 1.005; UROBILINOGEN,URINE NEGATIVE mg/dL (<2.0)
[2016-12-10] MEDS: SERTRALINE HCL 50 MG TABLET PO SCH (22:51)
[2016-12-10] MEDS: TRAZODONE HCL 50 MG TABLET PO SCH (22:51)
[2016-12-10] MEDS: ACETAMINOPHEN 325 MG TABLET PO PRN (22:56)
[2016-12-11] MEDS: LANSOPRAZOLE 30 MG TAB.RAP.DR PO SCH (06:02)
[2016-12-11] MEDS: LEVOTHYROXINE SODIUM 0.075 MG TABLET PO SCH (07:49)
[2016-12-11] MEDS ORDERED: SENNOSIDES/DOCUSATE 8.6-50 MG 1 EACH TABLET PO SCH (10:00)
[2016-12-11] MEDS: CALCIUM CARBONATE 250 MG/VITAMIN D3 125 UNIT TABLET PO SCH (11:42)
[2016-12-11] MEDS: RALOXIFENE HCL 60 MG TABLET PO SCH (11:43)
[2016-12-11] MEDS: PRENATAL VITAMIN W-O CA NO5/FE FUMARATE/FA CAPSULE PO SCH (11:43)
[2016-12-11] MEDS: LISINOPRIL 10 MG TABLET PO SCH (11:44)
[2016-12-11] MEDS: DOCUSATE SODIUM 100 MG CAPSULE PO SCH (11:44)
[2016-12-11] MEDS: CETIRIZINE 10 MG TABLET PO SCH (11:45)
[2016-12-11] MEDS: MAGNESIUM OXIDE 400 MG TABLET PO SCH (11:46)
[2016-12-11 12:04] VITALS: BP 149/61
--- NOTE | 2016-12-11 14:22 | PDOC PROGRESS REPORT ---
Subjective Progress Note for:: 12/11/16 Subjective:: Patient is doing well she has no complaints no recurrent chest pain She's awaiting transfer to [facility] She is alert and awake Physical Exam Vital Signs: Temp Pulse Resp BP Pulse Ox 98.5 F 82 16 149/61 H 99 12/11/16 12:00 12/11/16 12:00 12/11/16 12:00 12/11/16 12:00 12/11/16 12:00 Intake & Output 12/10/16 12/11/16 12/12/16 00:59 00:59 00:59 Intake Total 341 1600 1290 Output Total 1600 1200 Balance 341 0 90 General appearance: PRESENT: no acute distress, well-developed, well-nourished Head exam: PRESENT: atraumatic, normocephalic Eye exam: PRESENT: conjunctiva pink, EOMI, PERRLA. ABSENT: scleral icterus Ear exam: PRESENT: normal external ear exam Mouth exam: PRESENT: moist, tongue midline Neck exam: ABSENT: carotid bruit, JVD, lymphadenopathy, thyromegaly Respiratory exam: PRESENT: clear to auscultation haven. ABSENT: rales, rhonchi, wheezes Cardiovascular exam: PRESENT: RRR. ABSENT: diastolic murmur, rubs, systolic murmur Pulses: PRESENT: normal dorsalis pedis pul Vascular exam: PRESENT: normal capillary refill GI/Abdominal exam: PRESENT: normal bowel sounds, soft. ABSENT: distended, guarding, mass, organolmegaly, rebound, tenderness Rectal exam: PRESENT: deferred Extremities exam: PRESENT: full ROM. ABSENT: calf tenderness, clubbing, pedal edema Neurological exam: PRESENT: alert, awake, CN II-XII grossly intact. ABSENT: motor sensory deficit Psychiatric exam: PRESENT: appropriate affect, normal mood. ABSENT: homicidal ideation, suicidal ideation Skin exam: PRESENT: dry, intact, warm. ABSENT: cyanosis, rash Results Laboratory Results: 12/10/16 06:10 12/10/16 06:10 12/10/16 12/10/16 06:10 17:12 Magnesium 2.0 Urine Color STRAW Urine Appearance CLEAR Urine pH 6.0 Ur Specific [place] 1.005 Urine Protein NEGATIVE Urine Glucose (UA) NEGATIVE Urine Ketones NEGATIVE Urine Blood NEGATIVE Urine Nitrite NEGATIVE Ur Leukocyte Esterase SMALL H Urine WBC (Auto) 6 Urine RBC (Auto) 1 04/25/17 04/25/17 04/25/17 11:55 11:55 18:50 Creatine Kinase 26 L 26 L CK-MB (CK-2) 0.88 Troponin I < 0.012 12/09/16 18:50 Creatine Kinase CK-MB (CK-2) 0.77 Troponin I < 0.012 Impressions: Chest X-Ray 12/09/16 02:09 IMPRESSION: NO ACUTE RADIOGRAPHIC FINDING IN THE CHEST. Head CT 12/09/16 02:09 IMPRESSION: No acute or suspicious findings. Assessment & Plan - Diagnosis (1) Unstable angina Is this a current diagnosis for this admission?: Yes (2) Diabetes mellitus type 2, diet-controlled Is this a current diagnosis for this admission?: Yes (3) HTN (hypertension) Qualifiers: Hypertension type: essential hypertension Qualified Code(s): I10 - Essential (primary) hypertension Is this a current diagnosis for this admission?: Yes (4) Hyperlipidemia Qualifiers: Hyperlipidemia type: pure hypercholesterolemia Qualified Code(s): E78.00 - Pure hypercholesterolemia, unspecified; E78.0 - Pure hypercholesterolemia Is this a current diagnosis for this admission?: Yes (5) Hypothyroidism Qualifiers: Hypothyroidism type: acquired Qualified Code(s): E03.9 - Hypothyroidism, unspecified Is this a current diagnosis for this admission?: Yes - Time Time Spent with patient: Patient will be transferred later today to [facility] There is no change in is in her status Time Spent with patient: 15-24 minutes
== END 2016-12-11 15:30 | disposition short-term general hospital (02) ==
LOC: ER 01:59 → EH 04:58 → UNDOADMOB 04:58 → EH 08:26 → 4S 12:02
PROVIDERS: ADMIT Emergency Medicine; ATTEND Emergency Medicine
DX: I25.110 Atherosclerotic heart disease of native coronary artery with unstable angina pectoris (principal); I45.2 Bifascicular block; E11.9 Type 2 diabetes mellitus without complications; Z66 Do not resuscitate; I10 Essential (primary) hypertension; E78.5 Hyperlipidemia, unspecified; E03.9 Hypothyroidism, unspecified; K21.9 Gastro-esophageal reflux disease without esophagitis; M13.89 Other specified arthritis, multiple sites; F03.90 Unspecified dementia, unspecified severity, without behavioral disturbance, psychotic disturbance, mood disturbance, and anxiety; H57.12 Ocular pain, left eye; F41.9 Anxiety disorder, unspecified; R20.0 Anesthesia of skin; R51 Headache; Z79.82 Long term (current) use of aspirin; Z79.899 Other long term (current) drug therapy; Z82.49 Family history of ischemic heart disease and other diseases of the circulatory system; Z82.3 Family history of stroke; Z98.1 Arthrodesis status; Z87.891 Personal history of nicotine dependence
CPT/HCPCS: 93005 ×2; 99285; 36415 ×3; 82553; 82550; 83735; 85025 ×2; 85610 ×2; 85730 ×3; 80053 ×2; 81001 ×2; 84484; 71010; 70450; 93010; G0378 ×4; A9270 ×38; J1644 ×2; J1650; J7030 ×2

== ENCOUNTER 2017-06-30 12:45 | Emergency (ER) | payer MEDICARE, OTHER ==
--- NOTE | 2017-06-30 13:59 | RADIOLOGY REPORT (SQ) ---
EXAM DESCRIPTION: CT LTD RENAL STONE PROTOCOL ON COMPLETED DATE/TIME: 06/30/2017 1:33 pm REASON FOR STUDY: flank pain COMPARISON: None. TECHNIQUE: CT scan of the abdomen and pelvis performed without intravenous or oral contrast. Images reviewed with lung, soft tissue, and bone windows. Reconstructed coronal and sagittal MPR images revi ewed. All images stored on PACS. All CT scanners at this facility use dose modulation, iterative reconstruction, and/or weight based d osing when appropriate to reduce radiation dose to as low as reasonably achievable (ALARA). [facility]: Dose Right [facility]: CareDose [facility]: Dose Right [facility]: Teradose 4D [facility]: Smart Alpha Smart Systems RADIATION DOSE: Up-to-date CT equipment and radiation dose reduction techniques were employed. CTDIv ol: 4.9 mGy. DLP: 258 mGy-cm.mGy. LIMITATIONS: None. FINDINGS: LOWER CHEST: No significant findings. No nodules or infiltrates. NON-CONTRASTED LIVER, SPLEEN, ADRENALS: Evaluation limited by lack of IV contrast. No identified sign ificant masses. PANCREAS: No masses. No peripancreatic inflammatory changes. GALLBLADDER: No identified stones by CT criteria. No inflammatory changes to suggest cholecystitis. RIGHT KIDNEY AND URETER: No suspicious masses. Assessment limited by lack of IV contrast. No signif icant calcifications. No hydronephrosis or hydroureter. LEFT KIDNEY AND URETER: No suspicious masses. Assessment limited by lack of IV contrast. No signifi cant calcifications. No hydronephrosis or hydroureter. AORTA AND RETROPERITONEUM: No aneurysm. No retroperitoneal masses or adenopathy. BOWEL AND PERITONEAL CAVITY: No obvious masses or inflammatory changes. No free fluid. A moderate am ount of gas and fecal material is identified throughout the colon. Scattered diverticula are identif ied in the distal descending colon and sigmoid colon without CT evidence for diverticulitis APPENDIX: Normal. PELVIS, BLADDER, AND ABDOMINAL WALL:No abnormal masses. No free fluid. Bladder normal. BONES: Lumbar scoliosis convex to the right is identified with associated degenerative changes. OTHER: Small umbilical hernia and small bilateral inguinal hernias are identified containing fat. IMPRESSION: NO SIGNIFICANT OR ACUTE PROCESS IN THE ABDOMEN OR PELVIS. COMMENT: Quality ID # [id number]: Final reports with documentation of one or more dose reduction techniques (e.g., Automated exposure control, adjustment of the mA and/or kV according to patient size, use of iterative reconstruction technique) TECHNICAL DOCUMENTATION: JOB ID: [id number] [employer]- All Rights Reserved
--- NOTE | 2017-06-30 14:04 | ER Document Report ---
ED General - General Mode of Arrival: Ambulatory Information source: Patient TRAVEL OUTSIDE OF THE [place] IN LAST 30 DAYS: No <JOSELUIS GUNTER - Last Filed: 06/30/17 14:00> <NIDHI TOBISA - Last Filed: 07/29/17 16:35> - General Chief Complaint: Flank Pain Stated Complaint: LEFT FLANK PAIN Time Seen by Provider: 06/30/17 13:01 Notes: Patient is an 87 year old female that presents to the emergency department today with complaints of left flank, left hip, and left leg pain. Patient states that she has had this pain in the past but today it is "much worse". Patient is a poor historian so history is limited. (JOSELUIS GUNTER) - Related Data Allergies/Adverse Reactions: lidocaine [Lidocaine] Allergy (Severe, Verified 06/21/17 17:43) heart problems clonidine [Clonidine] Allergy (Verified 06/21/17 17:43) nifedipine [From Procardia] Allergy (Verified 06/21/17 17:43) Sulfa (Sulfonamide Antibiotics) Allergy (Verified 06/21/17 17:43) Shellfish * [Shellfish] Adverse Reaction (Verified 06/21/17 17:43) cat dander Allergy (Uncoded 06/21/17 17:43) dog dander Allergy (Uncoded 06/21/17 17:43) Past Medical History - General Information source: Patient - Social History Smoking Status: Unknown if Ever Smoked Cigarette use (# per day): No Frequency of alcohol use: None Drug Abuse: None Lives with: Family Family History: Reviewed & Not Pertinent, DM, Other - [place]-brother, sister, mother Stroke- brother, mother Patient has suicidal ideation: No Patient has homicidal ideation: No - Past Medical History Cardiac Medical History: Reports: Hx Atrial Fibrillation, Hx Coronary Artery Disease, Hx Hypercholesterolemia, Hx Hypertension Endocrine Medical History: Reports: Hx Diabetes Mellitus Type 2 - diet controlled, Hx Hypothyroidism GI Medical History: Reports: Hx Gastroesophageal Reflux Disease, Hx Ulcer Musculoskeltal Medical History: Reports Hx Arthritis, Reports Hx Fibromyalgia Psychiatric Medical History: Reports: Hx Anxiety, Hx Dementia, Hx Depression Past Surgical History: Reports: Hx Orthopedic Surgery - cervical fusion, Hx Thyroid Surgery - partial thyroidectomy - Immunizations Hx Diphtheria, Pertussis, Tetanus Vaccination: No Hx Pneumococcal Vaccination: 08/17/10 <JOSELUIS GUNTER - Last Filed: 06/30/17 14:00> Review of Systems - Review of Systems Constitutional: No symptoms reported EENT: No symptoms reported Cardiovascular: No symptoms reported Respiratory: No symptoms reported Gastrointestinal: No symptoms reported Genitourinary: No symptoms reported Female Genitourinary: No symptoms reported Musculoskeletal: See HPI, Other - left hip/leg pain/flank pain Skin: No symptoms reported Hematologic/Lymphatic: No symptoms reported Neurological/Psychological: No symptoms reported -: Yes All other systems reviewed and negative <JANIJOSELUIS - Last Filed: 06/30/17 14:00> Physical Exam - Vital signs Interpretation: Normal - General General appearance: Appears well, Alert - HEENT Head: Normocephalic, Atraumatic Eyes: Normal Pupils: PERRL - Respiratory Respiratory status: No respiratory distress Chest status: Nontender Breath sounds: Normal Chest palpation: Normal - Cardiovascular Rhythm: Regular Heart sounds: Normal auscultation Murmur: No - Abdominal Inspection: Normal Distension: No distension Bowel sounds: Normal Tenderness: Nontender Organomegaly: No organomegaly - Back Back: Normal, Tender - L paraspinal L3-5, L buttock - Extremities General upper extremity: Normal inspection, Nontender, Normal color, Normal ROM , Normal temperature General lower extremity: Normal inspection, Nontender, Normal color, Normal ROM , Normal temperature, Normal weight bearing. No: Lucia's sign - Neurological Neuro grossly intact: Yes Cognition: Normal Orientation: AAOx4 Abhijit Coma Scale Eye Opening: Spontaneous Abhijit Coma Scale Verbal: Oriented Abhijit Coma Scale Motor: Obeys Commands Abhijit Coma Scale Total: 15 Speech: Normal Motor strength normal: LUE, RUE, LLE, RLE Sensory: Normal - Psychological Associated symptoms: Normal affect, Normal mood - Skin Skin Temperature: Warm Skin Moisture: Dry Skin Color: Normal <NIDHI TOBIAS - Last Filed: 07/29/17 16:35> Course <JANIJOSELUIS - Last Filed: 06/30/17 14:00> - Laboratory Result Diagrams: 06/30/17 14:32 06/30/17 14:32 - Diagnostic Test Radiology reviewed: Reports reviewed <NIDHI TOBIAS - Last Filed: 07/29/17 16:35> - Re-evaluation Re-evalutation: Patient with no acute findings on imaging. Patient has been medicated and will be discharged back to her facility. This is apparently a chronic, ongoing issue for her. Stable for discharge. (NIDHI TOBIAS) - Laboratory Laboratory results interpreted by me: 06/30/17 06/30/17 13:50 14:32 Glucose 113 H Alkaline Phosphatase 37 L Ur Leukocyte Esterase TRACE H Urine Ascorbic Acid 40 H Discharge <JOSELUIS GUNTER - Last Filed: 06/30/17 14:00> <NIDHI TOBIAS - Last Filed: 07/29/17 16:35> - Discharge Clinical Impression: Sciatica Qualifiers: Laterality: unspecified laterality Qualified Code(s): M54.30 - Sciatica, unspecified side Low back pain Qualifiers: Chronicity: acute Back pain laterality: unspecified Sciatica presence: with sciatica Sciatica laterality: sciatica laterality unspecified Qualified Code(s) : M54.40 - Lumbago with sciatica, unspecified side Condition: Stable Disposition: HOME, SELF-CARE Instructions: Low Back Pain ([facility]), Sciatica ([facility]) Prescriptions: Cyclobenzaprine HCl [Flexeril 10 Mg Tablet] 5 - 10 mg PO BIDP PRN #30 tablet PRN Reason: Scribe Attestation: 06/30/17 15:48 I personally performed the services described in the documentation, reviewed and edited the documentation which was dictated to the scribe in my presence, and it accurately records my words and actions. (NIDHI TOBIAS) Scribe Documentation - Scribe Written by Alejandra:: Alejandra Espino, 06/30/2017 1403 acting as scribe for :: Shahana <JOSELUIS GUNTER - Last Filed: 06/30/17 14:00>
[2017-06-30 14:11] LABS: APPEARANCE,URINE CLOUDY; BILIRUBIN,URINE NEGATIVE (NEGATIVE); GLUCOSE, URINE NEGATIVE (NEGATIVE); KETONES,URINE NEGATIVE (NEGATIVE); LEUKOCYTE ESTERASE,URINE TRACE (NEGATIVE); NITRITE,URINE NEGATIVE (NEGATIVE); PROTEIN,URINE NEGATIVE (NEGATIVE); URINE SPECIFIC GRAVITY 1.014; UROBILINOGEN,URINE NEGATIVE mg/dL (<2.0)
[2017-06-30] MEDS ORDERED: CYCLOBENZAPRINE HCL 10 MG TABLET PO ONE (14:32)
[2017-06-30 14:44] LABS: ABSOLUTE BASOPHILS # (AUTO) 0.1 10^3/uL (0.0-0.2); ABSOLUTE LYMPHOCYTES (AUTO) 1.1 10^3/uL (0.5-4.7); ABSOLUTE MONOCYTES (AUTO) 0.5 10^3/uL (0.1-1.4); ABSOLUTE NEUT (AUTO) 4.5 10^3/uL (1.7-8.2); EOSINOPHILS % (AUTO) 0.3 % (0-6); HEMATOCRIT 36.1 % (36.0-47.0); HEMOGLOBIN 12.6 g/dL (12.0-15.5); HGB HCT DIFFERENCE 1.7; LYMPHOCYTES % (AUTO) 17.6 % (13-45); MEAN CORPUSCULAR HGB CONC 34.9 g/dL (32.0-36.0); MEAN CORPUSCULAR VOLUME 92 fl (80-97); MONOCYTES % (AUTO) 7.7 % (3-13); RED BLOOD COUNT 3.94 10^6/uL (3.72-5.28); RED CELL DISTRIBUTION WIDTH 13.3 % (11.5-14.0); SEGMENTED NEUTROPHILS % (AUTO) 73.4 % (42-78); WHITE BLOOD COUNT 6.2 10^3/uL (4.0-10.5)
[2017-06-30 15:07] LABS: ALANINE AMINOTRANSFERASE 30 U/L (9-52); ALBUMIN 3.8 g/dL (3.5-5.0); ALKALINE PHOSPHATASE 37 U/L (38-126); ANION GAP 9 (5-19); ASPARTATE AMINO TRANSFERASE 19 U/L (14-36); BILIRUBIN,DIRECT 0.3 mg/dL (0.0-0.4); BILIRUBIN,TOTAL 0.3 mg/dL (0.2-1.3); BLOOD UREA NITROGEN 14 mg/dL (7-20); CALCIUM 8.6 mg/dL (8.4-10.2); CARBON DIOXIDE 29 mmol/L (22-30); CHLORIDE 103 mmol/L (98-107); CREATININE RESULT 0.55 mg/dL (0.52-1.25); GLUCOSE 113 mg/dL (75-110); POTASSIUM 3.8 mmol/L (3.6-5.0); SODIUM 140.7 mmol/L (137-145); TOTAL PROTEIN 6.8 g/dL (6.3-8.2)
== END 2017-06-30 16:05 | disposition home or self-care (01) ==
LOC: ER 12:45
DX: M54.40 Lumbago with sciatica, unspecified side (principal); R10.9 Unspecified abdominal pain; M25.552 Pain in left hip; M79.605 Pain in left leg; I25.10 Atherosclerotic heart disease of native coronary artery without angina pectoris; I10 Essential (primary) hypertension; E11.9 Type 2 diabetes mellitus without complications; Z88.4 Allergy status to anesthetic agent; Z88.8 Allergy status to other drugs, medicaments and biological substances; Z88.2 Allergy status to sulfonamides; Z91.048 Other nonmedicinal substance allergy status; Z87.19 Personal history of other diseases of the digestive system
CPT/HCPCS: 99284; 36415; 87086; 85025; 80053; 81001; 76380; A9270

== ENCOUNTER 2019-02-04 06:28 | Emergency (ER) | payer MEDICARE, OTHER ==
[2019-02-04 06:45] VITALS: BP 193/86
[2019-02-04] MEDS ORDERED: LIDOCAINE 4%/TETRACAINE 0.5%/EPI 0.18% 5 ML TOPICAL SOLN TOP ONE (06:53)
--- NOTE | 2019-02-04 07:10 | ER Document Report ---
ED Fall - General Chief Complaint: Fall Injury Stated Complaint: FALL Time Seen by Provider: 02/04/19 06:37 Notes: 88-year-old lady presents with fall from standing. She says "I lost a fight with the floor." She denies syncope or loss consciousness. She has a mild headache. Denies neck pain or neurologic symptoms. Mental status baseline per facility. Blood thinners not on board. TRAVEL OUTSIDE OF THE [place] IN LAST 30 DAYS: No - Related data Allergies/Adverse Reactions: lidocaine [Lidocaine] Allergy (Severe, Verified 06/21/17 17:43) heart problems clonidine [Clonidine] Allergy (Verified 06/21/17 17:43) nifedipine [From Procardia] Allergy (Verified 06/21/17 17:43) Sulfa (Sulfonamide Antibiotics) Allergy (Verified 06/21/17 17:43) Shellfish * [Shellfish] Adverse Reaction (Verified 06/21/17 17:43) cat dander Allergy (Uncoded 06/21/17 17:43) dog dander Allergy (Uncoded 06/21/17 17:43) Past Medical History - Social History Smoking Status: Unknown if Ever Smoked Family History: Reviewed & Not Pertinent, DM, Other - [place]-brother, sister, mother Stroke- brother, mother Patient has suicidal ideation: No Patient has homicidal ideation: No - Past Medical History Cardiac Medical History: Reports: Hx Atrial Fibrillation, Hx Coronary Artery Disease, Hx Hypercholesterolemia, Hx Hypertension Denies: Hx Congestive Heart Failure, Hx Heart Attack Pulmonary Medical History: Denies: Hx Asthma, Hx Bronchitis, Hx COPD, Hx Pneumonia, Hx Tuberculosis Neurological Medical History: Denies: Hx Seizures Endocrine Medical History: Reports: Hx Diabetes Mellitus Type 2 - diet controlled, Hx Hypothyroidism Renal/ Medical History: Denies: Hx End Stage Renal Disease, Hx Kidney Stones, Hx Peritoneal Dialysis GI Medical History: Reports: Hx Gastroesophageal Reflux Disease, Hx Ulcer Musculoskeletal Medical History: Reports Hx Arthritis, Reports Hx Fibromyalgia Psychiatric Medical History: Reports: Hx Anxiety, Hx Dementia, Hx Depression Denies: Hx Bipolar Disorder, Hx Schizophrenia Past Surgical History: Reports: Hx Orthopedic Surgery - cervical fusion, Hx Thyroid Surgery - partial thyroidectomy - Immunizations Hx Diphtheria, Pertussis, Tetanus Vaccination: No Hx Pneumococcal Vaccination: 08/17/10 Review of Systems - Review of Systems Notes: REVIEW OF SYSTEMS : Dementia PHYSICAL EXAMINATION General: No acute distress, well-nourished Head: Left upper forehead 2 cm laceration through skin normocephalic ENT: Mouth normal, oropharynx moist, no exudates or tonsillar enlargement Eyes: Conjunctiva normal, pupils equal, lids normal Neck: No JVD, supple, no guarding CVS: Normal rate, regular rhythm, no murmurs Resp: No resp distress, equal and normal breath sounds bilaterally GI: Nondistended, soft, no tenderness to palpation, no rebound or guarding Ext: No deformities, no edema, normal range of motion in upper and lower ext Back: No CVA or midline TTP Skin: No rash, warm Lymphatic: No lymphadeopathy noted Neuro: Awake, alert. Face symmetric. GCS 15. Memory impairment. Physical Exam - Vital signs Vitals: Temp Pulse Resp BP Pulse Ox 98.1 F 79 15 193/86 H 98 02/04/19 06:42 02/04/19 06:42 02/04/19 06:42 02/04/19 06:42 02/04/19 06:42 Course - Re-evaluation Re-evalutation: 02/04/19 07:36 Fall from standing. Small scalp black. Allergic to lidocaine. Mental status b aseline. CT head and C-spine negative. Cleared collar. Lack repaired after irrigation with Dermabond and Steri-Strips. Instructions given. Discharge back to facility. I have discussed with the patient there likely diagnosis, aftercare plan, follow-up plans and my usual and customary return precautions. They verbalized understanding of this. - Vital Signs Vital signs: Temp Pulse Resp BP Pulse Ox 98.1 F 79 15 193/86 H 98 02/04/19 06:42 02/04/19 06:42 02/04/19 06:42 02/04/19 06:42 02/04/19 06:42 - Diagnostic Test Radiology reviewed: Reports reviewed Procedures - Laceration/Wound Repair Left Upper Face Wound length (cm): 3 Wound's Depth, Shape: Superficial Laceration pre-procedure: Betadine prep applied Anesthetic type: Other Wound explored: Clean, No foreign body removed Irrigated w/ Saline (mLs): 50 Wound Repaired With: Steri-strips, Dermabond - 2 layers Discharge - Discharge Clinical Impression: Fall from standing Qualifiers: Encounter type: initial encounter Qualified Code(s): W19.XXXA - Unspecified fall, initial encounter Condition: Good Disposition: HOME, SELF-CARE Instructions: Concussion ([facility]), Laceration Care ([facility])
--- NOTE | 2019-02-04 07:20 | RADIOLOGY REPORT (SQ) ---
EXAM DESCRIPTION: CT CERVICAL SPINE WITHOUT IV CONTRAST COMPLETED DATE/TME: 02/04/2019 06:37 CLINICAL HISTORY: 88 years, Female, fall COMPARISON: None. TECHNIQUE: Axial CT images of the cervical spine were obtained without contrast. Sagittal and coronal reformats were performed. DLP 345 Images stored on PACS. All CT scanners at this facility use dose modulation, iterative reconstruction, and/or weight based dosing when appropriate to reduce radiation dose to as low as reasonably achievable (ALARA). [facility]: Dose Right [facility]: CareDose [facility]: Dose Right [facility]: Teradose 4D [facility]: [employer] LIMITATIONS: None. FINDINGS: The alignment of the cervical spine is satisfactory. There is no acute fracture or subluxation. The vertebral heights are maintained. The odontoid process is intact. The craniocervical junction is intact. The prevertebral soft tissues are normal. There is multilevel spondylosis, worst at C5-C6 and C6-C7 with disc space narrowing, sclerosis and marginal osteophytes. There is severe right-sided neural foraminal narrowing at C4-C5 and C5-C6. The visualized lung apices are clear. There are changes of a left thyroidectomy. 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 IMPRESSION: No acute fracture or subluxation. TECHNICAL DOCUMENTATION: Quality ID # [id number]: Final reports with documentation of one or more dose reduction techniques (e.g., Automated exposure control, adjustment of the mA and/or kV according to patient size, use of iterative reconstruction technique) copyright 2011 [employer]- All Rights Reserved
--- NOTE | 2019-02-04 07:24 | RADIOLOGY REPORT (SQ) ---
EXAM DESCRIPTION: CT HEAD WITHOUT IV CONTRAST COMPLETED DATE/TME: 02/04/2019 06:37 CLINICAL HISTORY: Pain. 88 years Female, fall COMPARISON: 12/09/16 TECHNIQUE: No contrast. Coronal and sagittal reformat. This exam was performed according to our departmental dose-optimization program, which includes automated exposure control, adjustment of the mA and/or kV according to patient size and/or use of iterative reconstruction technique. FINDINGS: No hemorrhage or infarct. No mass, mass effect, or midline shift. White matter microangiopathy, parenchymal volume loss, and atherosclerosis. Small left frontal scalp swelling. Brain and extra-axial structures appear otherwise intact. IMPRESSION: Scalp swelling/injury. Else, no acute intracranial findings.
== END 2019-02-04 09:29 | disposition home or self-care (01) ==
LOC: ER 06:28
DX: S01.81XA Laceration without foreign body of other part of head, initial encounter (principal); R51 Headache; W19.XXXA Unspecified fall, initial encounter; Y93.89 Activity, other specified; Y92.193 Bedroom in other specified residential institution as the place of occurrence of the external cause; I10 Essential (primary) hypertension; I25.10 Atherosclerotic heart disease of native coronary artery without angina pectoris; E11.9 Type 2 diabetes mellitus without complications; Z88.4 Allergy status to anesthetic agent; Z88.8 Allergy status to other drugs, medicaments and biological substances; Z88.2 Allergy status to sulfonamides; Z91.048 Other nonmedicinal substance allergy status
CPT/HCPCS: 70450; 72125; 99283

== ENCOUNTER 2019-09-03 07:37 | Emergency (ER) | payer MEDICARE ==
--- NOTE | 2019-09-03 08:37 | ER Document Report ---
ED General - General Chief Complaint: Thigh Injury Stated Complaint: FALL Time Seen by Provider: 09/03/19 08:08 Primary Care Provider: MARTAH STONER MD [Primary Care Provider] - Follow up in 3-5 days Notes: 89-year-old female presents for evaluation after fall. Patient states the floor was slick next to her bed and she slipped and fell. Patient states she did not hit her head. Patient states she had tenderness to her right thigh/hip. Patient denies being on any blood thinners. TRAVEL OUTSIDE OF THE [place] IN LAST 30 DAYS: No - Related Data Allergies/Adverse Reactions: lidocaine [Lidocaine] Allergy (Severe, Verified 06/21/17 17:43) heart problems clonidine [Clonidine] Allergy (Verified 06/21/17 17:43) nifedipine [From Procardia] Allergy (Verified 06/21/17 17:43) Sulfa (Sulfonamide Antibiotics) Allergy (Verified 06/21/17 17:43) Shellfish * [Shellfish] Adverse Reaction (Verified 06/21/17 17:43) cat dander Allergy (Uncoded 06/21/17 17:43) dog dander Allergy (Uncoded 06/21/17 17:43) Past Medical History - Social History Smoking Status: Unknown if Ever Smoked Chew tobacco use (# tins/day): No Frequency of alcohol use: None Drug Abuse: None Family History: Reviewed & Not Pertinent, DM, Other - [place]-brother, sister, mother Stroke- brother, mother Patient has suicidal ideation: No Patient has homicidal ideation: No - Past Medical History Cardiac Medical History: Reports: Hx Atrial Fibrillation, Hx Coronary Artery Disease, Hx Hypercholesterolemia, Hx Hypertension Denies: Hx Congestive Heart Failure, Hx Heart Attack Pulmonary Medical History: Denies: Hx Asthma, Hx Bronchitis, Hx COPD, Hx Pneumonia, Hx Tuberculosis Neurological Medical History: Denies: Hx Seizures, Hx Parkinson's Disease Endocrine Medical History: Reports: Hx Diabetes Mellitus Type 2 - diet controlled, Hx Hypothyroidism Renal/ Medical History: Denies: Hx End Stage Renal Disease, Hx Kidney Stones, Hx Peritoneal Dialysis GI Medical History: Reports: Hx Gastroesophageal Reflux Disease, Hx Ulcer Musculoskeletal Medical History: Reports Hx Arthritis, Reports Hx Fibromyalgia Psychiatric Medical History: Reports: Hx Anxiety, Hx Dementia, Hx Depression Denies: Hx Bipolar Disorder, Hx Schizophrenia Past Surgical History: Reports: Hx Orthopedic Surgery - cervical fusion, Hx Thyroid Surgery - partial thyroidectomy - Immunizations Hx Diphtheria, Pertussis, Tetanus Vaccination: No Hx Pneumococcal Vaccination: 08/17/10 Review of Systems - Review of Systems Notes: Constitutional: Negative for fever. HENT: Negative for sore throat. Eyes: Negative for visual changes. Cardiovascular: Negative for chest pain. Respiratory: Negative for shortness of breath. Gastrointestinal: Negative for abdominal pain, vomiting or diarrhea. Genitourinary: Negative for dysuria. Musculoskeletal: Positive for right hip pain. Skin: Negative for rash. Neurological: Negative for headaches, weakness or numbness. 10 point ROS negative except as marked above and in HPI. Physical Exam - Vital signs Vitals: Temp Resp BP Pulse Ox 97.6 F 20 153/69 H 94 09/03/19 07:53 09/03/19 07:53 09/03/19 07:53 09/03/19 07:53 - Notes Notes: GENERAL: Well-appearing, well-nourished and in no acute distress. HEAD: Atraumatic, normocephalic. EYES: Extraocular movements intact, sclera anicteric, conjunctiva are normal. NECK: Normal range of motion, supple without lymphadenopathy or JVD. CHEST: Nontender. LUNGS: Breath sounds clear to auscultation bilaterally and equal. No wheezes rales or rhonchi. HEART: Regular rate and rhythm without murmurs, rubs or gallops. ABDOMEN: Soft, nontender, normoactive bowel sounds. No guarding, no rebound. No masses appreciated. EXTREMITIES: Tenderness to bilateral upper arms, left hand, right posterior hip, right foot. BACK: Tenderness to L spine. No tenderness to T or C spine. NEUROLOGICAL: Cranial nerves II through XII grossly intact. Normal speech, normal gait. PSYCH: Normal mood, normal affect. SKIN: Warm, Dry, normal turgor, no rashes or lesions noted. Course - Re-evaluation Re-evalutation: 09/03/19 08:37 X-ray tech requested L spine x-ray be changed to CT due to possible femur fracture. 09/03/19 89 y/o female presents for evaluation for fall. Appears to be mechanical fall. Pt was given fentanyl by EMS and is declining any other analgesics at this time. Due to age, CT head/c spine were ordered. Right femur x-ray was also ordered by RN per protocol. X-rays to bilateral humeri, left hand, right foot also ordered. 09/03/19 11:18 CT head/C spine and x-rays show no acute abnormalities. Pt is able to ambulate without difficulty. Discussed all results with patient. Strict return precautions given. Patient given close follow-up with PCP. Pt to be discharged home. - Vital Signs Vital signs: Temp Pulse Resp BP Pulse Ox 97.7 F 17 138/69 H 94 09/03/19 11:38 09/03/19 11:38 09/03/19 11:38 09/03/19 11:38 Discharge - Discharge Clinical Impression: Right hip pain, Right foot pain, Bilateral arm pain Fall Qualifiers: Encounter type: initial encounter Qualified Code(s): W19.XXXA - Unspecified fall, initial encounter Low back pain Qualifiers: Chronicity: acute Back pain laterality: unspecified Sciatica presence: unspecified whether sciatica present Qualified Code(s): M54.5 - Low back pain Condition: Stable Disposition: HOME, SELF-CARE Additional Instructions: Your CT of your head, neck, low back did not show any abnormalities. Your x-ray of your right hip, right foot, left hand, and both upper arms did not show any fractures. Please take Tylenol or Motrin for pain. Please follow-up with your primary care doctor in 3 to 5 days. Return to ER for any worsening symptoms, including confusion, passing out, increased pain chest pain, shortness of breath, dizziness, or any other symptoms that are concerning to you. Referrals: MARTHA STONER MD [Primary Care Provider] - Follow up in 3-5 days
--- NOTE | 2019-09-03 09:01 | RADIOLOGY REPORT (SQ) ---
EXAM DESCRIPTION: CT CERVICAL SPINE WITHOUT COMPLETED DATE/TIME: 09/03/2019 8:37 am REASON FOR STUDY: fall, unknown head injury COMPARISON: 02/04/2019 TECHNIQUE: Axial images acquired through the cervical spine without intravenous contrast. Images re viewed with lung, soft tissue and bone windows. Reconstructed coronal and sagittal MPR images review ed. Images stored on PACS. All CT scanners at this facility use dose modulation, iterative reconstruction, and/or weight based d osing when appropriate to reduce radiation dose to as low as reasonably achievable (ALARA). [facility]: Dose Right [facility]: CareDose [facility]: Dose Right [facility]: Teradose 4D [facility]: [employer] RADIATION DOSE: CT Rad equipment meets quality standard of care and radiation dose reduction techniq ues were employed. CTDIvol: 12.6 mGy. DLP: 244 mGy-cm. mGy. LIMITATIONS: Motion. FINDINGS: ALIGNMENT: Anatomic. MINERALIZATION: Normal. VERTEBRAL BODIES: No fractures or dislocation. DISCS: Multilevel disc space narrowing with osteophytes. FACETS, LATERAL MASSES, POSTERIOR ELEMENTS: Facet arthropathy. No fractures. No dislocation. No ac saxman findings. HARDWARE: None in the spine. VISUALIZED RIBS: No fractures. LUNG APICES AND SOFT TISSUES: Unchanged right thyroid nodule. OTHER: No other significant finding. IMPRESSION: CHRONIC DEGENERATIVE CHANGES. NO ACUTE FINDINGS. TECHNICAL DOCUMENTATION: JOB ID: [id number] Quality ID # [id number]: Final reports with documentation of one or more dose reduction techniques (e.g., Au tomated exposure control, adjustment of the mA and/or kV according to patient size, use of iterative reconstruction technique) 2010 [employer]- All Rights Reserved Reading location - IP/workstation name: [email or web address]
--- NOTE | 2019-09-03 09:02 | RADIOLOGY REPORT (SQ) ---
EXAM DESCRIPTION: CT HEAD WITHOUT COMPLETED DATE/TIME: 09/03/2019 8:37 am REASON FOR STUDY: fall, unknown head injury COMPARISON: 02/04/2019 TECHNIQUE: Axial images acquired through the brain without intravenous contrast. Images reviewed wi th bone, brain and subdural windows. Additional sagittal and coronal reconstructions were generated. Images stored on PACS. All CT scanners at this facility use dose modulation, iterative reconstruction, and/or weight based d osing when appropriate to reduce radiation dose to as low as reasonably achievable (ALARA). [facility]: Dose Right [facility]: CareDose [facility]: Dose Right [facility]: Teradose 4D [facility]: Smart [employer] RADIATION DOSE: CT Rad equipment meets quality standard of care and radiation dose reduction techniq ues were employed. CTDIvol: 53.2 mGy. DLP: 1044 mGy-cm.mGy. LIMITATIONS: Motion artifact. FINDINGS: VENTRICLES: Prominent. CEREBRUM: No masses. No hemorrhage. No midline shift. Areas of low density in the white matter mos t likely due to chronic micro-vascular ischemic change. No evidence for acute infarction. CEREBELLUM: No masses. No hemorrhage. No alteration of density. No evidence for acute infarction. EXTRAAXIAL SPACES: Age-related involutional change. No fluid collections. No masses. ORBITS AND GLOBE: No intra- or extraconal masses. Normal contour of globe without masses. CALVARIUM: No fracture. PARANASAL SINUSES: No fluid or mucosal thickening. SOFT TISSUES: No mass or hematoma. OTHER: No other significant finding. IMPRESSION: CHRONIC CHANGES OF ATROPHY AND MICROVASCULAR ISCHEMIA. NO ACUTE PROCESS. EVIDENCE OF ACUTE STROKE: NO. TECHNICAL DOCUMENTATION: JOB ID: [id number] Quality ID # [id number]: Final reports with documentation of one or more dose reduction techniques (e.g., Au tomated exposure control, adjustment of the mA and/or kV according to patient size, use of iterative reconstruction technique) 2010 [employer]- All Rights Reserved Reading location - IP/workstation name: [email or web address]
--- NOTE | 2019-09-03 09:22 | RADIOLOGY REPORT (SQ) ---
EXAM DESCRIPTION: FEMUR RIGHT COMPLETED DATE/TIME: 09/03/2019 9:02 am REASON FOR STUDY: fall COMPARISON: None. NUMBER OF VIEWS: Two views. TECHNIQUE: Two radiographic images acquired of the right femur to include hip and knee in at least o ne projection. LIMITATIONS: None. FINDINGS: MINERALIZATION: Normal. BONES: No acute fracture. No worrisome bone lesions. SOFT TISSUES: No obvious swelling or foreign body. OTHER: No other significant finding. IMPRESSION: NEGATIVE STUDY OF THE RIGHT FEMUR. NO RADIOGRAPHIC EVIDENCE OF ACUTE INJURY. TECHNICAL DOCUMENTATION: JOB ID: [id number] [employer]- All Rights Reserved Reading location - IP/workstation name: [email or web address]
--- NOTE | 2019-09-03 09:23 | RADIOLOGY REPORT (SQ) ---
EXAM DESCRIPTION: HAND LEFT 3 VIEWS COMPLETED DATE/TIME: 09/03/2019 9:02 am REASON FOR STUDY: fall, pain COMPARISON: None. EXAM PARAMETERS: NUMBER OF VIEWS: Three views. TECHNIQUE: AP, lateral and oblique radiographic images acquired of the left hand. LIMITATIONS: None. FINDINGS: MINERALIZATION: Osteopenia. BONES: No acute fracture or dislocation. No worrisome bone lesions. JOINTS: Osteoarthritis. SOFT TISSUES: No foreign body. OTHER: No other significant finding. IMPRESSION: No fracture. TECHNICAL DOCUMENTATION: JOB ID: [id number] [employer]- All Rights Reserved Reading location - IP/workstation name: [email or web address]
--- NOTE | 2019-09-03 09:24 | RADIOLOGY REPORT (SQ) ---
EXAM DESCRIPTION: FOOT RIGHT COMPLETE COMPLETED DATE/TIME: 09/03/2019 9:02 am REASON FOR STUDY: fall, pain COMPARISON: None. NUMBER OF VIEWS: Three views. TECHNIQUE: AP, lateral and oblique radiographic images acquired of the right foot. LIMITATIONS: None. FINDINGS: MINERALIZATION: Osteopenia. BONES: No acute fracture or dislocation. No worrisome bone lesions. JOINTS: No effusions. SOFT TISSUES: No soft tissue swelling. No foreign body. OTHER: No other significant finding. IMPRESSION: No fracture. TECHNICAL DOCUMENTATION: JOB ID: [id number] [employer]- All Rights Reserved Reading location - IP/workstation name: [email or web address]
--- NOTE | 2019-09-03 09:25 | RADIOLOGY REPORT (SQ) ---
EXAM DESCRIPTION: HUMERUS BILAT 2 OR MORE VIEWS COMPLETED DATE/TIME: 09/03/2019 9:02 am REASON FOR STUDY: fall, pain COMPARISON: None. NUMBER OF VIEWS: Four views. TECHNIQUE: Two radiographic images were acquired of the right and left humerus to include elbow and shoulder in at least one projection. LIMITATIONS: None. FINDINGS: MINERALIZATION: Osteopenia. BONES: No acute fracture or dislocation. No worrisome bone lesions. SOFT TISSUES: No obvious swelling or foreign body. OTHER: Glenohumeral joint arthropathy. IMPRESSION: No fracture. TECHNICAL DOCUMENTATION: JOB ID: [id number]- All Rights Reserved Reading location - IP/workstation name: [email or web address]
--- NOTE | 2019-09-03 09:35 | RADIOLOGY REPORT (SQ) ---
EXAM DESCRIPTION: CT LUMBAR SPINE WITHOUT COMPLETED DATE/TIME: 09/03/2019 9:14 am REASON FOR STUDY: L spine tenderness, fall COMPARISON: None. TECHNIQUE: Axial images acquired through the lumbar spine without intravenous contrast. Images revi ewed with lung, soft tissue and bone windows. Reconstructed coronal and sagittal MPR images reviewed . All images stored on PACS. All CT scanners at this facility use dose modulation, iterative reconstruction, and/or weight based d osing when appropriate to reduce radiation dose to as low as reasonably achievable (ALARA). [facility]: Dose Right [facility]: CareDose [facility]: Dose Right [facility]: Teradose 4D [facility]: Smart [employer] RADIATION DOSE: mGy. LIMITATIONS: None. FINDINGS: Bones are osteopenic. Severe convex right scoliosis. Advanced spondylosis and facet arth ropathy. No fracture is identified. No paraspinal hematoma. IMPRESSION: No fracture. TECHNICAL DOCUMENTATION: JOB ID: [id number] Quality ID # [id number]: Final reports with documentation of one or more dose reduction techniques (e.g., Au tomated exposure control, adjustment of the mA and/or kV according to patient size, use of iterative reconstruction technique) 2010 [employer]- All Rights Reserved Reading location - IP/workstation name: [email or web address]
[2019-09-03 11:41] VITALS: BP 138/69
== END 2019-09-03 11:50 | disposition home or self-care (01) ==
LOC: ER 07:37
DX: M54.5 Low back pain (principal); M25.551 Pain in right hip; M79.671 Pain in right foot; M79.602 Pain in left arm; M79.601 Pain in right arm; W01.0XXA Fall on same level from slipping, tripping and stumbling without subsequent striking against object, initial encounter
CPT/HCPCS: 70450; 72125; 72131; 73060; 99284